=== PATIENT | female | born 1950 | race Caucasian/White ===

== ENCOUNTER 2021-01-09 14:19 | Emergency (ER) | payer MEDICARE, MEDICAID ==
[2021-01-09] MEDS ORDERED: Diltiazem 25 MG/5 ML SDV IVPUSH ONE (14:45)
--- NOTE | 2021-01-09 14:56 | EDM.PDOC ---
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 She said she was too weak to get up yesterday, could not feed herself and today called the ambulance because she was just worn out. Ambulance arrived and found her to be in atrial fibrillation with RVR, very diaphoretic and weak but not febrile. O2 sats were normal. Her main complaint is weakness Onset: Gradual Duration: Hour(s): (Symptoms for the last 2 days) Location: Reports: Generalized Associated Symptoms: Reports: Diaphoresis, Loss of Appetite, Malaise, Weakness. Denies: Chest Pain, Nausea/Vomiting, Shortness of Breath Lower Back Pain Score (Numeric/FACES): 8 - Related Data Allergies Allergy/AdvReac Type Severity Reaction Status Date / Time Sulfa (Sulfonamide Allergy Hives Verified 01/09/21 14:33 Antibiotics) fentanyl AdvReac Hallucinati Verified 01/09/21 14:33 ons morphine AdvReac Nausea and Verified 01/09/21 14:33 Vomiting Home Meds: Home Meds DULoxetine [Cymbalta] 60 mg PO BID 06/10/13 [History] Gabapentin 1,200 mg PO TID 06/10/13 [History] metFORMIN [metFORMIN XR] 500 mg PO BIDM 06/10/13 [History] Metoprolol Tartrate 50 mg PO BID 09/01/14 [History] tiZANidine [Zanaflex] 4 mg PO Q8HR PRN 12/23/14 [History] Cholecalciferol (Vitamin D3) [Vitamin D3] 125 mcg PO DAILY 04/23/19 [History] Fluticasone Propionate [Flovent] 2 spray ABHISHEK DAILY 04/23/19 [History] Magnesium Oxide [Magnesium Oxide 400] 400 mg PO BEDTIME 04/23/19 [History] Varenicline [Chantix] 1 mg PO DAILY 04/23/19 [History] atorvaSTATin Calcium [Atorvastatin Calcium] 10 mg PO BEDTIME 04/23/19 [History] hydrOXYzine HCL [Hydroxyzine HCl] 25 mg PO TID PRN 04/23/19 [History] Hydrocortisone [Hydrocortisone 1% Crm] 1 applic TOP BID 08/25/20 [History] Insuln Asp Prot/Insulin Aspart [NovoLOG Mix 70-30] 19 units SUBCUT BID 08/25/20 [History] Rivaroxaban [Xarelto] 20 mg PO DAILY 08/25/20 [History] glipiZIDE [Glucotrol XL] 2.5 mg PO DAILY 08/25/20 [History] oxyCODONE HCl [Oxycodone HCl] 20 mg PO Q4H PRN 08/25/20 [History] Past Medical History HEENT History: Reports: Cataract, Hard of Hearing, Impaired Vision Cardiovascular History: Reports: Arrhythmia, Blood Clots/VTE/DVT, Pacemaker Respiratory History: Reports: Bronchitis, Recurrent Genitourinary History: Reports: Urinary Incontinence [employer] History: Reports: Musculoskeletal History: Reports: Arthritis, Back Pain, Chronic Psychiatric History: Reports: Depression Endocrine/Metabolic History: Reports: Diabetes, Type I Dermatologic History: Reports: Other (See Below) Other Dermatologic History: rash - Infectious Disease History Infectious Disease History: Reports: Chicken Pox, Measles - Past Surgical History Cardiovascular Surgical History: Reports: Pacer GI Surgical History: Reports: Appendectomy, Hernia, Inguinal Other GI Surgeries/Procedures: bowel removed with endometreosis Female Surgical History: Reports: Section, Hysterectomy Neurological Surgical History: Reports: Laminectomy, Spinal Fusion Social & Family History - Family History Family Medical History: No Pertinent Family History - Tobacco Use Tobacco Use Status *Q: Heavy Tobacco User Years of Tobacco use: 10 Packs/Tins Daily: 0.5 - Caffeine Use Caffeine Use: Reports: None - Recreational Drug Use Recreational Drug Use: No ED ROS GENERAL - Review of Systems Review Of Systems: See Below Constitutional: Reports: Chills, Malaise HEENT: Denies: Throat Pain Respiratory: Denies: Shortness of Breath Cardiovascular: Denies: Chest Pain, Palpitations Endocrine: Reports: Fatigue GI/Abdominal: Reports: Nausea. Denies: Abdominal Pain : Reports: No Symptoms Musculoskeletal: Reports: Back Pain (Chronic back pain) Skin: Reports: Other (Purulent drainage from a pilonidal cyst) Neurological: Reports: Dizziness, Weakness. Denies: Headache Psychiatric: Reports: Depression ED EXAM, GENERAL - Physical Exam Exam: See Below Exam Limited By: No Limitations General Appearance: Alert, No Apparent Distress, Other (Initially very diaphoretic, weak) Eye Exam: Bilateral Eye: Normal Inspection (No jaundice) Head: Atraumatic Respiratory/Chest: No Respiratory Distress, Lungs Clear Cardiovascular: Tachycardia, Irregularly Irregular GI/Abdominal: Soft, Non-Tender Back Exam: Other (Patient has an open wound above the sacrum draining purulent material which is chronic) Extremities: Normal Inspection. No: Pedal Edema Neurological: Alert, Oriented, No Motor/Sensory Deficits Psychiatric: Flat Affect Skin Exam: Warm, Dry Course - Re-Assessments/Exams Free Text/Narrative Re-Assessment/Exam: 01/09/21 15:45 An IV was started, patient was bolused with 1 L of saline and given 20 mg of IV Cardizem. This did control her RVR rate temporarily she did not convert to a sinus rhythm nor did it slow her RVR down for more than 20 minutes. CBC, CMP and troponin were obtained. CBC was normal, CMP relatively normal 01/09/21 16:55 Troponin was negative, coronavirus negative. Continued to begin atrial fibrillation with RVR. Consultation with Jermaine Silva, our hospitalist, and he agreed to assist with elective cardioversion. Under propofol anesthesia for a total time of 18 minutes, 1 synchronized cardioversion was attempted at 200 J. This did convert the patient into a paced rhythm with a pulse of 62 for about 2 minutes, then she went back into atrial fibrillation. Patient did display some hypotension immediately after the procedure but recovered fairly quickly. 01/09/21 18:15 Patient wanted to avoid transfer to another hospital and asked to attempt to control her rate and see if she will convert on her own. She was given 50 mg of oral metoprolol as well as 20 mg of oral oxycodone, her regular pain control medication. Care was turned over to Dr. Fitzgerald pending effective oral medications. Departure - Departure Disposition: Home, Self-Care 01 Clinical Impression: Atrial fibrillation with rapid ventricular response, Pilonidal sinus Chronic pain Qualifiers: Chronic pain type: other chronic pain Qualified Code(s): G89.29 - Other chronic pain Referrals: PCP,Unknown [Primary Care Provider] - Forms: ED Department Discharge Sepsis Event Note (ED) - Evaluation Sepsis Screening Result: No Definite Risk <Aniceto Ramsey - Last Filed: 01/09/21 20:52> Course - Vital Signs Last Recorded V/S: Last Vital Signs Temp 35.8 C L 01/09/21 14:30 Pulse 116 H 01/09/21 18:26 Resp 20 01/09/21 18:26 BP 134/95 H 01/09/21 18:26 Pulse Ox 98 01/09/21 18:26 - Orders/Labs/Meds Labs: Laboratory Tests 01/09/21 01/09/21 01/09/21 Range/Units 14:55 14:55 14:55 WBC 7.4 (4.5-11.0) K/uL RBC 4.81 (3.30-5.50) M/uL Hgb 14.5 (12.0-15.0) g/dL Hct 44.3 (36.0-48.0) % MCV 92 (80-98) fL MCH 30 (27-31) pg MCHC 33 (32-36) % Plt Count 347 (150-400) K/uL Neut % (Auto) 72.7 H (36-66) % Lymph % (Auto) 16.5 L (24-44) % [place] % (Auto) 10.3 H (2-6) % Eos % (Auto) 0.1 L (2-4) % Baso % (Auto) 0.4 (0-1) % Sodium 139 L (140-148) mmol/L Potassium 4.4 (3.6-5.2) mmol/L Chloride 102 (100-108) mmol/L Carbon Dioxide 24 (21-32) mmol/L Anion Gap 17.4 H (5.0-14.0) mmol/L BUN 8 (7-18) mg/dL Creatinine 0.8 (0.6-1.0) mg/dL Est Cr Clr Drug Dosing 54.90 mL/min Estimated GFR (MDRD) > 60 (>60) Glucose 296 H (74-106) mg/dL Lactic Acid (0.4-2.0) mmol/L Calcium 8.9 (8.5-10.1) mg/dL Total Bilirubin 0.4 (0.2-1.0) mg/dL AST 11 L (15-37) U/L ALT 17 (12-78) U/L Alkaline Phosphatase 94 (46-116) U/L Troponin I < 0.017 (0.000-0.056) ng/mL Total Protein 7.2 (6.4-8.2) g/dL Albumin 3.1 L (3.4-5.0) g/dL Globulin 4.1 H (2.3-3.5) g/dL Albumin/Globulin Ratio 0.8 L (1.2-2.2) SARS-CoV-2 RNA (ADAM) (NEGATIVE) 01/09/21 01/09/21 Range/Units 14:58 19:41 WBC (4.5-11.0) K/uL RBC (3.30-5.50) M/uL Hgb (12.0-15.0) g/dL Hct (36.0-48.0) % MCV (80-98) fL MCH (27-31) pg MCHC (32-36) % Plt Count (150-400) K/uL Neut % (Auto) (36-66) % Lymph % (Auto) (24-44) % [place] % (Auto) (2-6) % Eos % (Auto) (2-4) % Baso % (Auto) (0-1) % Sodium (140-148) mmol/L Potassium (3.6-5.2) mmol/L Chloride (100-108) mmol/L Carbon Dioxide (21-32) mmol/L Anion Gap (5.0-14.0) mmol/L BUN (7-18) mg/dL Creatinine (0.6-1.0) mg/dL Est Cr Clr Drug Dosing mL/min Estimated GFR (MDRD) (>60) Glucose (74-106) mg/dL Lactic Acid 0.9 (0.4-2.0) mmol/L Calcium (8.5-10.1) mg/dL Total Bilirubin (0.2-1.0) mg/dL AST (15-37) U/L ALT (12-78) U/L Alkaline Phosphatase (46-116) U/L Troponin I (0.000-0.056) ng/mL Total Protein (6.4-8.2) g/dL Albumin (3.4-5.0) g/dL Globulin (2.3-3.5) g/dL Albumin/Globulin Ratio (1.2-2.2) SARS-CoV-2 RNA (ADAM) Negative (NEGATIVE) Meds: Medications Discontinued Medications Generic Name Dose Route Start Last Admin Trade Name Freq PRN Reason Stop Dose Admin Diltiazem HCl 20 mg 01/09/21 14:45 01/09/21 14:49 Diltiazem 25 Mg/5 Ml Sdv IVPUSH 01/09/21 14:46 20 mg ONETIME ONE Administration Hydromorphone HCl 0.5 mg 01/09/21 15:49 01/09/21 15:56 Hydromorphone 0.5 Mg/0.5 Ml Syringe IVPUSH 01/09/21 15:50 0.5 mg ONETIME ONE Administration Hydromorphone HCl 0.5 mg 01/09/21 18:29 01/09/21 18:34 Hydromorphone 0.5 Mg/0.5 Ml Syringe IVPUSH 01/09/21 18:30 0.5 mg ONETIME ONE Administration Sodium Chloride 1,000 mls @ 999 mls/hr 01/09/21 14:57 01/09/21 15:24 Normal Saline IV 01/09/21 15:57 999 mls/hr ONETIME ONE Administration Metoprolol Tartrate 5 mg/ 55 mls @ 100 mls/hr 01/09/21 16:43 01/09/21 18:37 Sodium Chloride IV 01/09/21 17:15 Not Given ONETIME ONE Metoprolol Tartrate 50 mg 01/09/21 17:22 01/09/21 17:51 Metoprolol Tartrate 50 Mg Tab PO 01/09/21 17:23 50 mg ONETIME ONE Administration Oxycodone HCl 20 mg 01/09/21 17:47 01/09/21 17:51 Oxycodone 5 Mg Tab PO 01/09/21 17:48 20 mg ONETIME ONE Administration Propofol 200 mg 01/09/21 16:11 01/09/21 16:56 Propofol 200 Mg/20 Ml Sdv IVPUSH 01/09/21 16:12 100 mg ONETIME ONE Administration - Re-Assessments/Exams Free Text/Narrative Re-Assessment/Exam: 01/09/21 20:25 the patient has responded well to the metoprolol and is still in atrial fibrillation but is now at a rate of 62 bpm. She still a little diaphoretic but feels much better. Her pain is down to a 5 out of 10 which is where she normally would reside. She is interested in going back home at this time. I did check a venous lactate just to make sure that she was not septic but this is 0.9. Indications to return to the ED were discussed. Departure - Departure Time of Disposition: 20:51 Sepsis Event Note (ED) - Focused Exam Vital Signs: Vital Signs Temp Pulse Pulse Resp BP BP Pulse Ox 01/09/21 18:26 116 H 20 134/95 H 98 01/09/21 17:51 120 H 146/87 H 01/09/21 17:41 115 H 14 141/79 H 100 01/09/21 16:29 124 H 18 121/85 99 01/09/21 14:53 101 H 16 126/69 98 01/09/21 14:46 143 H 17 115/65 99 01/09/21 14:30 35.8 C L 131 H 18 131/75 98 01/09/21 14:26 35.8 C L 131 H 18 131/75 98
[2021-01-09] MEDS ORDERED: Sodium Chloride 0.9% 1,000 ML IV ONE (14:57)
[2021-01-09] MEDS ORDERED: HYDROmorphone 0.5 MG/0.5 ML Syringe IVPUSH ONE ×2 (15:49→18:29)
[2021-01-09] MEDS ORDERED: Propofol 200 MG/20 ML SDV IVPUSH ONE (16:11)
[2021-01-09] MEDS ORDERED: Metoprolol Tartrate 5 MG in Sodium Chloride 0.9% 50 ML IV ONE (16:43)
--- NOTE | 2021-01-09 16:46 | PCM.PRNOTE ---
- Free Text/Narrative Note: Date of service: 01/09/2021 Proposed procedure: Synchronized cardioversion Preprocedure diagnosis: Paroxysmal atrial fibrillation with rapid ventricular response Post procedure diagnosis: Paroxysmal atrial fibrillation with rapid ventricular response Indication for procedure: Yue was evaluated today for management atrial fibrillation with symptoms and rapid ventricular response. Synchronized cardioversion was recommended as a primary treatment. Description of the procedure: Yue is currently located by 10 in the emergency room. We have reviewed the potential risks of electrical cardioversion including but not limited to: Superficial skin herring, ineffective treatment, other arrhythmias, reaction to anesthesia medications or potentially asystole. The benefits of the procedure have also been reviewed. At this time the patient wishes to proceed with electrical cardioversion. All necessary pre-procedure information and paperwork has been provided and completed, respectively. The patient was connected to cardioversion pads and monitoring equipment per protocol. Prior to the procedure, a timeout was held with nursing and anesthesia present to confirm the right patient and right procedure. Once appropriate anesthesia was applied the machine was charged to 150 Joules and a synchronized electrical shock was applied. The patient was successfully converted to normal sinus rhythm/paced rhythm based on telemetry monitoring. The patient then quickly returned to atrial fibrillation with a rapid ventricular response. We elected not to provide another shock because of how quickly she returned to rapid atrial fibrillation. The patient will remain in their current location until anesthesia has dissipated and the patient is more awake and alert. Anticoagulation should be continued for at least one month post cardioversion. There were no immediate complications noted from the procedure. Disposition is pending at the time of this dictation. Cr Silva M.D.
[2021-01-09] MEDS ORDERED: Metoprolol Tartrate 50 MG Tab PO ONE (17:22)
[2021-01-09] MEDS ORDERED: oxyCODONE 5 MG Tab PO ONE (17:47)
[2021-01-09 18:27] VITALS: BP 134/95; PULSE 116
== END 2021-01-09 21:17 | disposition home or self-care (01) ==
LOC: JP.ED 14:19
DX: I48.91 Unspecified atrial fibrillation (principal); L05.01 Pilonidal cyst with abscess; J34.89 Other specified disorders of nose and nasal sinuses; E10.9 Type 1 diabetes mellitus without complications; Z95.0 Presence of cardiac pacemaker; Z72.0 Tobacco use; Z88.5 Allergy status to narcotic agent; Z88.8 Allergy status to other drugs, medicaments and biological substances; Z88.2 Allergy status to sulfonamides; Z20.822 Contact with and (suspected) exposure to COVID-19
CPT/HCPCS: 36415; 80053; 83605; 84484; 85025; 92960; 96374; 96375; 96376; 99285; A9270; J1170; J2704; J3490; J7030; U0002

== ENCOUNTER 2021-09-28 14:07 | Emergency (ER) | payer MEDICARE, MEDICAID ==
[2021-09-28 15:41] VITALS: BP 156/71; PULSE 91
== END 2021-09-28 15:42 | disposition home or self-care (01) ==
LOC: JP.ED 14:07
DX: L05.92 Pilonidal sinus without abscess (principal); G89.29 Other chronic pain; M54.50 Low back pain, unspecified; E10.9 Type 1 diabetes mellitus without complications; Z88.2 Allergy status to sulfonamides; Z88.4 Allergy status to anesthetic agent; Z88.5 Allergy status to narcotic agent; F17.210 Nicotine dependence, cigarettes, uncomplicated; Z79.899 Other long term (current) drug therapy
CPT/HCPCS: 87070; 87077; 87205; 99281; 99283

== ENCOUNTER 2022-03-26 13:01 | Emergency (ER) | payer MEDICARE, MEDICAID ==
[2022-03-26 13:40] VITALS: BP 156/56; PULSE 60
== END 2022-03-26 14:53 | disposition home or self-care (01) ==
LOC: JP.ED 13:01
DX: R00.2 Palpitations (principal); I48.91 Unspecified atrial fibrillation; E11.9 Type 2 diabetes mellitus without complications; E78.00 Pure hypercholesterolemia, unspecified; I10 Essential (primary) hypertension; F17.210 Nicotine dependence, cigarettes, uncomplicated; Z95.0 Presence of cardiac pacemaker; Z88.2 Allergy status to sulfonamides; Z88.5 Allergy status to narcotic agent; Z79.4 Long term (current) use of insulin; Z79.899 Other long term (current) drug therapy
CPT/HCPCS: 36415; 80048; 84484; 85025; 99285

== ENCOUNTER 2022-04-13 07:23 | Emergency (ER) | payer MEDICAID, MEDICARE ==
[2022-04-13 07:27] VITALS: PULSE 104
[2022-04-13] MEDS ORDERED: Ondansetron 4 MG/2 ML SDV IVPUSH ONE (07:28)
[2022-04-13] MEDS ORDERED: Sodium Chloride 0.9% 10 ML Syringe FLUSH PRN (07:28)
[2022-04-13] MEDS ORDERED: Sodium Chloride 0.9% 500 ML IV ONE ×2 (07:28→09:25)
[2022-04-13 08:14] LABS: ESTIMATED GFR 79 mL/min (>60)
[2022-04-13] MEDS ORDERED: oxyCODONE 5 MG Tab PO ONE (08:44)
[2022-04-13] MEDS ORDERED: Prochlorperazine 10 MG/2 ML SDV IVPUSH ONE (09:21)
[2022-04-13] MEDS ORDERED: 50% Dextrose in Water 50 ML Syringe IVPUSH PRN ×2 (09:28→11:22)
[2022-04-13] MEDS ORDERED: Glucagon,Human Recombinant 1 MG Vial IM PRN ×2 (09:28→11:22)
[2022-04-13] MEDS ORDERED: Insulin Lispro 100 Units/ML 3 ML Vial SUBCUT ONE ×2 (09:45→11:22)
[2022-04-13 11:47] VITALS: BP 156/67
== END 2022-04-13 12:11 | disposition home or self-care (01) ==
LOC: JP.ED 07:23
DX: M46.26 Osteomyelitis of vertebra, lumbar region (principal); E11.65 Type 2 diabetes mellitus with hyperglycemia; E11.10 Type 2 diabetes mellitus with ketoacidosis without coma; I48.91 Unspecified atrial fibrillation; E78.00 Pure hypercholesterolemia, unspecified; I10 Essential (primary) hypertension; E11.9 Type 2 diabetes mellitus without complications; Z88.2 Allergy status to sulfonamides; Z88.5 Allergy status to narcotic agent; Z88.8 Allergy status to other drugs, medicaments and biological substances; Z79.01 Long term (current) use of anticoagulants; Z79.899 Other long term (current) drug therapy; Z79.82 Long term (current) use of aspirin; Z79.4 Long term (current) use of insulin
CPT/HCPCS: 36415; 74019; 80053; 80162; 82009; 82550; 82803; 82947; 83605; 83690; 85025; 85651; 86140; 93005; 96374; 96375; 99285; A9270; J0780; J1815; J2405; J3490; J7040; 93010; 99284

== ENCOUNTER 2022-09-02 02:31 | Emergency (ER) | payer MEDICARE, MEDICAID ==
[2022-09-02] MEDS ORDERED: Ondansetron 4 MG/2 ML SDV IVPUSH ONE (02:37)
[2022-09-02 02:46] LABS: BASE EXCESS VENOUS -1.9 mm/L; BICARBONATE,VENOUS 20.8 mmol/L; CARBOXYHEMOGLOBIN 2.5 % (0.0-1.6); METHEMOGLOBIN 0.6 %; O2 SATURATION VENOUS 85.4; OXYHEMOGLOBIN 82.8 %; PCO2 VENOUS 31.4 mm/Hg; PH,VENOUS 7.437 (7.350-7.450); PO2 VENOUS 50.4 mm/Hg; TOTAL HEMOGLOBIN 14.3 g/dL (12.0-16.0)
[2022-09-02 02:48] LABS: HEMATOCRIT 39.9 % (34.3-46.0); HEMOGLOBIN 13.6 g/dL (11.2-15.5); MEAN CORPUSCULAR HEMOGLOBIN 30.7 pg (31.6-35.5); MEAN CORPUSCULAR HGB CONC 34.1 g/dL (31.6-35.5); MEAN CORPUSCULAR VOLUME 90.1 fL (81.4-99.0); PLATELET COUNT,PLT 258 K/uL (130-375); RED BLOOD CELL COUNT 4.43 M/uL (3.77-5.24); WHITE BLOOD CELL COUNT,WBC 8.5 K/uL (3.2-11.0)
[2022-09-02] MEDS ORDERED: Sodium Chloride 0.9% 1,000 ML IV SCH (03:00)
[2022-09-02 03:11] LABS: A/G RATIO 0.6 (1.2-2.2); ALANINE AMINOTRANSFERASE,ALT 14 U/L (12-78); ALBUMIN 2.7 g/dL (3.4-5.0); ALKALINE PHOSPHATASE 112 U/L (46-116); ASPARTATE AMNIOTRANSFERASE,AST 14 U/L (15-37); BAND ABSOLUTE MAN 0.68 K/uL; BAND PERCENT MAN 8 % (5-11); BILIRUBIN TOTAL 0.9 mg/dL (0.2-1.0); BLOOD UREA NITROGEN,BUN 8 mg/dL (7-18); CALCIUM 8.8 mg/dL (8.5-10.1); CARBON DIOXIDE,CO2 23 mmol/L (21-32); CHLORIDE,CL 98 mmol/L (100-108); CREATININE 0.7 mg/dL (0.6-1.0); EST CRCL DRUG DOSING (CG) 60.98 mL/min; ESTIMATED GFR 92 mL/min (>60); GLUCOSE RANDOM 274 mg/dL (74-106); LYMPHOCYTES ABSOLUTE MAN 0.85 K/uL (0.8-3.3); LYMPHOCYTES PERCENT MAN 10 % (24-44); MONOCYTES PERCENT MAN 7 % (2-6); NEUTROPHILS ABSOLUTE MAN 6.38 K/uL (1.0-7.6); POTASSIUM,K 3.6 mmol/L (3.6-5.2); PROTEIN TOTAL,TP 7.4 g/dL (6.4-8.2); SEG NEUTROPHILS PERCENT MAN 75 % (36-66); SODIUM,NA 134 mmol/L (140-148)
[2022-09-02 03:12] LABS: ANION GAP 16.6 mmol/L (5.0-14.0)
[2022-09-02 03:18] LABS: LACTIC ACID 2.4 mmol/L (0.4-2.0)
[2022-09-02 03:23] VITALS: BP 155/67; PULSE 105
[2022-09-02 03:44] LABS: APPEARANCE,URINE CLEAR (CLEAR); BILIRUBIN,URINE SMALL (NEGATIVE); COLOR,URINE YELLOW (YELLOW); GLUCOSE,URINE 500 mg/dL (NEGATIVE); KETONES,URINE 80 mg/dL (NEGATIVE); LEUKOCYTE ESTERASE,URINE NEGATIVE (NEGATIVE); NITRITE,URINE NEGATIVE (NEGATIVE); OCCULT BLOOD,URINE TRACE-INTACT (NEGATIVE); PH,URINE 5.5 (5.0-8.0); PROTEIN,URINE 100 mg/dL (NEGATIVE)
[2022-09-02 03:50] LABS: AMORPHOUS SEDIMENT,URINE MODERATE; BACTERIA,URINE FEW; EPITHELIAL CELLS,URINE RARE; MUCUS,URINE NOT SEEN; RBC,URINE 0-5 (0-5); WBC,URINE 0-5 (0-5)
[2022-09-02] MEDS ORDERED: Metoclopramide 10 MG/2 ML SDV IVPUSH ONE (04:00)
== END 2022-09-02 07:00 | disposition home or self-care (01) ==
LOC: JP.ED 02:31
DX: J20.9 Acute bronchitis, unspecified (principal); J44.0 Chronic obstructive pulmonary disease with (acute) lower respiratory infection; L98.492 Non-pressure chronic ulcer of skin of other sites with fat layer exposed; A08.4 Viral intestinal infection, unspecified; M86.8X8 Other osteomyelitis, other site; I48.91 Unspecified atrial fibrillation; I10 Essential (primary) hypertension; E78.00 Pure hypercholesterolemia, unspecified; E11.9 Type 2 diabetes mellitus without complications; Z88.5 Allergy status to narcotic agent; Z88.2 Allergy status to sulfonamides; Z88.6 Allergy status to analgesic agent; Z79.01 Long term (current) use of anticoagulants; Z79.4 Long term (current) use of insulin; Z79.899 Other long term (current) drug therapy; Z20.822 Contact with and (suspected) exposure to COVID-19
CPT/HCPCS: 36415; 71046; 80053; 80162; 81001; 82803; 83605; 85025; 86140; 93005; 93010; 96361; 96374; 96375; 99283; 99285; J2405; J2765; J7030; U0002

== ENCOUNTER 2023-05-05 03:27 | Inpatient (IN) | payer MEDICARE ==
[2023-05-05] MEDS: LORazepam 2 MG/ML SDV IVPUSH ONE (03:53)
[2023-05-05] MEDS: Ondansetron 4 MG/2 ML SDV IVPUSH ONE (03:53)
[2023-05-05 03:55] LABS: BASOPHILS ABSOLUTE AUTO 0.04 K/uL (0.00-0.10); BASOPHILS PERCENT AUTO 0.3 % (0.1-1.3); EOSINOPHILS PERCENT AUTO 0.2 % (0.0-5.4); HEMATOCRIT 46.1 % (34.3-46.0); HEMOGLOBIN 15.6 g/dL (11.2-15.5); IMMATURE GRAN ABSOLUTE AUTO 0.03 K/uL (0.00-0.23); IMMATURE GRAN PERCENT AUTO 0.2 % (0.0-0.7); LYMPHOCYTES ABSOLUTE AUTO 2.84 K/uL (0.8-3.3); LYMPHOCYTES PERCENT AUTO 23.4 % (11.4-47.7); MEAN CORPUSCULAR HEMOGLOBIN 28.7 pg (31.6-35.5); MEAN CORPUSCULAR HGB CONC 33.8 g/dL (31.6-35.5); MEAN CORPUSCULAR VOLUME 84.7 fL (81.4-99.0); MONOCYTES ABSOLUTE AUTO 0.94 K/uL (0.20-0.90); MONOCYTES PERCENT AUTO 7.7 % (3.3-12.6); NEUTROPHILS ABSOLUTE AUTO 8.26 K/uL (1.0-7.6); NEUTROPHILS PERCENT AUTO 68.2 % (40.0-78.1); PLATELET COUNT,PLT 322 K/uL (130-375); RED BLOOD CELL COUNT 5.44 M/uL (3.77-5.24); WHITE BLOOD CELL COUNT,WBC 12.1 K/uL (3.2-11.0)
[2023-05-05 03:57] LABS: EOSINOPHILS ABSOLUTE AUTO 0.02 K/uL (0.00-0.40)
[2023-05-05] MEDS: Sodium Chloride 0.9% 1,000 ML IV ONE ×3 (03:58→08:52)
[2023-05-05 04:16] LABS: A/G RATIO 0.7 (1.2-2.2); ALANINE AMINOTRANSFERASE,ALT 24 U/L (12-78); ALBUMIN 3.4 g/dL (3.4-5.0); ALKALINE PHOSPHATASE 114 U/L (46-116); ASPARTATE AMNIOTRANSFERASE,AST 24 U/L (15-37); BILIRUBIN TOTAL 0.6 mg/dL (0.2-1.0); BLOOD UREA NITROGEN,BUN 15 mg/dL (7-18); CALCIUM 8.7 mg/dL (8.5-10.1); CARBON DIOXIDE,CO2 23 mmol/L (21-32); CHLORIDE,CL 96 mmol/L (100-108); CREATININE 0.9 mg/dL (0.6-1.0); EST CRCL DRUG DOSING (CG) 47.43 mL/min; ESTIMATED GFR 68 mL/min (>60); GLUCOSE RANDOM 232 mg/dL (74-106); POTASSIUM,K 3.4 mmol/L (3.6-5.2); PROTEIN TOTAL,TP 8.1 g/dL (6.4-8.2); SODIUM,NA 134 mmol/L (140-148)
[2023-05-05 04:18] LABS: ANION GAP 18.4 mmol/L (5.0-14.0)
[2023-05-05 04:52] LABS: CORONAVIRUS COVID-19 NAA NEGATIVE (NEGATIVE); INFLUENZA A NAA NEGATIVE (NEGATIVE); INFLUENZA B NAA NEGATIVE (NEGATIVE); RESPIRATORY SYNCYTIAL VIR NAA NEGATIVE (NEGATIVE)
[2023-05-05] MEDS: HYDROmorphone 1 MG/ML Syringe IVPUSH ONE (06:06)
[2023-05-05 06:24] LABS: APPEARANCE,URINE SLIGHTLY CLOUDY (CLEAR); BILIRUBIN,URINE NEGATIVE (NEGATIVE); COLOR,URINE YELLOW (YELLOW); GLUCOSE,URINE NEGATIVE (NEGATIVE); KETONES,URINE 15 mg/dL (NEGATIVE); LEUKOCYTE ESTERASE,URINE NEGATIVE (NEGATIVE); NITRITE,URINE NEGATIVE (NEGATIVE); OCCULT BLOOD,URINE TRACE-INTACT (NEGATIVE); PH,URINE 5.5 (5.0-8.0); PROTEIN,URINE >=300 mg/dL (NEGATIVE); UROBILINOGEN,URINE 0.2 EU/dL (0.2-1.0)
[2023-05-05 06:29] LABS: AMORPHOUS SEDIMENT,URINE NOT SEEN; BACTERIA,URINE FEW; EPITHELIAL CELLS,URINE FEW; MUCUS,URINE MODERATE; RBC,URINE 0-5 (0-5)
[2023-05-05 06:30] LABS: AMPHETAMINES SCREEN, URINE NEGATIVE (NEGATIVE); BARBITURATE SCREEN,URINE NEGATIVE (NEGATIVE); BENZODIAZEPINES SCREEN,URINE NEGATIVE (NEGATIVE); METHADONE SCREEN, URINE NEGATIVE (NEGATIVE); METHAMPHETAMINES SCREEN, URINE NEGATIVE (NEGATIVE); OXYCODONE SCREEN,URINE PRESUMPTIVE POSITIVE (NEGATIVE); PROPOXYPHENE SCREEN,URINE NEGATIVE (NEGATIVE); THC SCREEN,URINE 50 NG/ML NEGATIVE (NEGATIVE)
[2023-05-05] MEDS ORDERED: Vancomycin 1,500 GM in Sodium Chloride 0.9% 250 ML IV ONE (08:25)
[2023-05-05] MEDS: Cefepime 2 GM in Sodium Chloride 0.9% 50 ML IV ONE (08:50)
[2023-05-05] MEDS: oxyCODONE 5 MG Tab PO ONE (08:53)
[2023-05-05] MEDS ORDERED: Sennosides/Docusate Sodium 50-8.6 MG Tab PO PRN (12:07)
[2023-05-05] MEDS ORDERED: LORazepam 2 MG/ML SDV IVPUSH PRN (12:07)
[2023-05-05] MEDS ORDERED: Acetaminophen 325 MG Tab PO PRN (12:07)
[2023-05-05] MEDS ORDERED: Magnesium Hydroxide 400 MG/5 ML Susp 30 ML Cup PO PRN (12:07)
[2023-05-05] MEDS ORDERED: Ondansetron 4 MG/2 ML SDV IV PRN (12:07)
[2023-05-05] MEDS ORDERED: Ondansetron 4 MG Tab.DIS PO PRN (12:07)
[2023-05-05] MEDS ORDERED: OXYCODONE HCL 20 MG PO PRN (12:15)
[2023-05-05] MEDS ORDERED: Non-Formulary Medication 1 Each (Tizanidine [Zanaflex] 4 MG Tablet) PO PRN (12:15)
[2023-05-05] MEDS ORDERED: Gabapentin 300 MG Cap PO SCH (14:00)
[2023-05-05] MEDS ORDERED: tiZANidine 2 MG Tab PO PRN (14:02)
[2023-05-05] MEDS: Digoxin 125 MCG Tab PO SCH (14:10)
[2023-05-05] MEDS: Gabapentin 400 MG Cap PO SCH (14:10)
[2023-05-05] MEDS: oxyCODONE 5 MG Tab PO PRN (14:56)
[2023-05-05] MEDS: Potassium Chloride 20 MEQ Tab.ER PO SCH (16:42)
[2023-05-05] MEDS: metFORMIN 500 MG Tab PO SCH (16:43)
[2023-05-05] MEDS: Insulin Lispro 100 Unit/ML 3 ML KwikPen SUBCUT SCH (16:49)
[2023-05-05] MEDS ORDERED: Glucose Gel 15 GM in 37.5 GM Tube PO PRN (17:17)
[2023-05-05] MEDS ORDERED: 50% Dextrose in Water 50 ML Syringe IVPUSH PRN (17:17)
[2023-05-05] MEDS ORDERED: Glucagon,Human Recombinant 1 MG Vial IM PRN (17:17)
[2023-05-05] MEDS: Metoprolol Tartrate 5 MG/5 ML SDV IVPUSH ONE (17:44)
[2023-05-05] MEDS: Cefepime 2 GM in Sodium Chloride 0.9% 50 ML IV SCH (19:47)
[2023-05-05] MEDS ORDERED: Metoprolol Tartrate 25 MG Tab PO SCH (21:00)
[2023-05-05] MEDS ORDERED: Non-Formulary Medication 1 Each (Insuln Asp Prot/Insulin Aspart [Novolog Mix 70-30] 100 UN SUBCUT SCH (21:00)
[2023-05-05] MEDS: Insulin Lispro Protamine/Lispro 75-25 100 Units/ML 10 ML Vial SUBCUT SCH (21:45)
[2023-05-05] MEDS: DULoxetine 30 MG Cap PO SCH (21:48)
[2023-05-05] MEDS: atorvaSTATin 10 MG Tab PO SCH (21:49)
[2023-05-05] MEDS: buPROPion 150 MG Tab.ER PO SCH (21:50)
[2023-05-05] MEDS: Metoprolol Tartrate 50 MG Tab PO SCH (21:51)
[2023-05-05] MEDS: Sodium Chloride 0.9% 1,000 ML IV SCH (23:55)
[2023-05-06 06:00] LABS: HEMATOCRIT 38.1 % (34.3-46.0); HEMOGLOBIN 12.3 g/dL (11.2-15.5); MEAN CORPUSCULAR HEMOGLOBIN 28.5 pg (31.6-35.5); MEAN CORPUSCULAR HGB CONC 32.3 g/dL (31.6-35.5); MEAN CORPUSCULAR VOLUME 88.2 fL (81.4-99.0); RED BLOOD CELL COUNT 4.32 M/uL (3.77-5.24)
[2023-05-06 06:12] LABS: HEMOGLOBIN A1C 7.9 % (4.5-6.2)
[2023-05-06 06:23] LABS: A/G RATIO 0.7 (1.2-2.2); ALANINE AMINOTRANSFERASE,ALT 17 U/L (12-78); ALBUMIN 2.4 g/dL (3.4-5.0); ALKALINE PHOSPHATASE 80 U/L (46-116); ASPARTATE AMNIOTRANSFERASE,AST 16 U/L (15-37); BILIRUBIN TOTAL 0.5 mg/dL (0.2-1.0); BLOOD UREA NITROGEN,BUN 9 mg/dL (7-18); C-REACTIVE PROTEIN 0.79 mg/dL (<0.50); CALCIUM 7.5 mg/dL (8.5-10.1); CARBON DIOXIDE,CO2 25 mmol/L (21-32); CHLORIDE,CL 107 mmol/L (100-108); CREATININE 0.7 mg/dL (0.6-1.0); EST CRCL DRUG DOSING (CG) 60.98 mL/min; ESTIMATED GFR 92 mL/min (>60); GLUCOSE RANDOM 73 mg/dL (74-106); POTASSIUM,K 3.2 mmol/L (3.6-5.2); SODIUM,NA 140 mmol/L (140-148)
[2023-05-06 06:28] LABS: ANION GAP 11.2 mmol/L (5.0-14.0)
[2023-05-06] MEDS: Pantoprazole 40 MG Tab.CR PO SCH (08:05)
[2023-05-06] MEDS: glipiZIDE 5 MG Tab PO SCH (08:05)
[2023-05-06] MEDS: Polyethylene Glycol 3350 Powder 17 GM Packet PO SCH (08:06)
[2023-05-06] MEDS ORDERED: Non-Formulary Medication 1 Each (Rivaroxaban [Xarelto] 20 MG Tablet) PO SCH (09:00)
[2023-05-06] MEDS ORDERED: glipiZIDE 5 MG Tab.ER PO SCH (09:00)
[2023-05-06] MEDS: SODIUM HYPOCHLORITE TOP SCH (10:22)
[2023-05-06] MEDS: Rivaroxaban 10 MG Tab PO SCH (10:29)
[2023-05-06] MEDS ORDERED: SODIUM HYPOCHLORITE TOP SCH (15:00)
[2023-05-07 05:13] LABS: HEMATOCRIT 38.3 % (34.3-46.0); HEMOGLOBIN 12.6 g/dL (11.2-15.5); MEAN CORPUSCULAR HGB CONC 32.9 g/dL (31.6-35.5); RED BLOOD CELL COUNT 4.35 M/uL (3.77-5.24); WHITE BLOOD CELL COUNT,WBC 6.4 K/uL (3.2-11.0)
[2023-05-07 05:30] LABS: A/G RATIO 0.7 (1.2-2.2); ALANINE AMINOTRANSFERASE,ALT 20 U/L (12-78); ALBUMIN 2.5 g/dL (3.4-5.0); ALKALINE PHOSPHATASE 82 U/L (46-116); ASPARTATE AMNIOTRANSFERASE,AST 16 U/L (15-37); BILIRUBIN TOTAL 0.4 mg/dL (0.2-1.0); BLOOD UREA NITROGEN,BUN 11 mg/dL (7-18); CALCIUM 7.9 mg/dL (8.5-10.1); CARBON DIOXIDE,CO2 26 mmol/L (21-32); CHLORIDE,CL 107 mmol/L (100-108); CREATININE 0.7 mg/dL (0.6-1.0); EST CRCL DRUG DOSING (CG) 60.98 mL/min; ESTIMATED GFR 92 mL/min (>60); GLUCOSE RANDOM 50 mg/dL (74-106); POTASSIUM,K 3.1 mmol/L (3.6-5.2); PROTEIN TOTAL,TP 6.2 g/dL (6.4-8.2); SODIUM,NA 142 mmol/L (140-148)
[2023-05-07 05:44] LABS: ANION GAP 12.1 mmol/L (5.0-14.0)
[2023-05-07] MEDS ORDERED: hydrALAZINE 20 MG/ML SDV IVPUSH PRN (08:19)
[2023-05-07] MEDS: Nystatin Topical Powder 15 GM Bottle TOP PRN (15:00)
[2023-05-08 05:31] LABS: HEMATOCRIT 39.8 % (34.3-46.0); HEMOGLOBIN 13.2 g/dL (11.2-15.5); MEAN CORPUSCULAR HEMOGLOBIN 29.1 pg (31.6-35.5); MEAN CORPUSCULAR HGB CONC 33.2 g/dL (31.6-35.5); MEAN CORPUSCULAR VOLUME 87.9 fL (81.4-99.0); RED BLOOD CELL COUNT 4.53 M/uL (3.77-5.24); WHITE BLOOD CELL COUNT,WBC 7.1 K/uL (3.2-11.0)
[2023-05-08 06:04] LABS: A/G RATIO 0.7 (1.2-2.2); ALANINE AMINOTRANSFERASE,ALT 23 U/L (12-78); ALBUMIN 2.7 g/dL (3.4-5.0); ALKALINE PHOSPHATASE 83 U/L (46-116); ANION GAP 7.8 mmol/L (5.0-14.0); ASPARTATE AMNIOTRANSFERASE,AST 17 U/L (15-37); BILIRUBIN TOTAL 0.4 mg/dL (0.2-1.0); BLOOD UREA NITROGEN,BUN 22 mg/dL (7-18); C-REACTIVE PROTEIN 1.19 mg/dL (<0.50); CALCIUM 8.7 mg/dL (8.5-10.1); CARBON DIOXIDE,CO2 29 mmol/L (21-32); CHLORIDE,CL 103 mmol/L (100-108); CREATININE 0.8 mg/dL (0.6-1.0); EST CRCL DRUG DOSING (CG) 53.35 mL/min; ESTIMATED GFR 79 mL/min (>60); GLUCOSE RANDOM 55 mg/dL (74-106); POTASSIUM,K 3.7 mmol/L (3.6-5.2); PROTEIN TOTAL,TP 6.7 g/dL (6.4-8.2); SODIUM,NA 140 mmol/L (140-148)
[2023-05-08] MEDS: Insulin Lispro Protamine/Lispro 75-25 100 Units/ML 10 ML Vial SUBCUT SCH (10:53)
[2023-05-08 11:31] VITALS: BP 124/46
[2023-05-08 13:37] VITALS: PULSE 71
== END 2023-05-08 15:06 | disposition home health service (06) | DRG 871 ==
LOC: JP.ED 03:27 → JP.MS 08:55
PROVIDERS: ADMIT Hospitalist; ATTEND Internal Medicine
DX: A41.01 Sepsis due to Methicillin susceptible Staphylococcus aureus (principal); J96.01 Acute respiratory failure with hypoxia; N39.0 Urinary tract infection, site not specified; E87.1 Hypo-osmolality and hyponatremia; E11.9 Type 2 diabetes mellitus without complications; Z90.49 Acquired absence of other specified parts of digestive tract; L03.319 Cellulitis of trunk, unspecified; R65.20 Severe sepsis without septic shock; L89.159 Pressure ulcer of sacral region, unspecified stage; H91.90 Unspecified hearing loss, unspecified ear; M54.50 Low back pain, unspecified; Z88.8 Allergy status to other drugs, medicaments and biological substances; E11.40 Type 2 diabetes mellitus with diabetic neuropathy, unspecified; E78.00 Pure hypercholesterolemia, unspecified; I10 Essential (primary) hypertension; E87.6 Hypokalemia; E11.622 Type 2 diabetes mellitus with other skin ulcer; L98.492 Non-pressure chronic ulcer of skin of other sites with fat layer exposed; M19.90 Unspecified osteoarthritis, unspecified site; I48.91 Unspecified atrial fibrillation; F32.A Depression, unspecified; G89.29 Other chronic pain; Z90.710 Acquired absence of both cervix and uterus; Z98.890 Other specified postprocedural states; Z88.2 Allergy status to sulfonamides; Z79.899 Other long term (current) drug therapy; Z79.01 Long term (current) use of anticoagulants; Z79.4 Long term (current) use of insulin; Z98.1 Arthrodesis status; Z79.84 Long term (current) use of oral hypoglycemic drugs; Z88.5 Allergy status to narcotic agent; Z11.52 Encounter for screening for COVID-19; Z95.0 Presence of cardiac pacemaker; Z86.718 Personal history of other venous thrombosis and embolism; Z87.891 Personal history of nicotine dependence
CPT/HCPCS: 0241U; 36415; 71045; 80053; 80162; 80305; 81001; 82947; 83036; 83605; 84145; 85025; 85027; 86140; 87040; 87070; 87075; 87077; 87186; 87205; 96361; 96374; 96375; 97162; 97530; 99222; 99232; 99238; 99285; A9270-GY; J0692; J1170; J1815; J2060; J2405; J3370; J3490; J7030; J7050

== ENCOUNTER 2023-12-19 04:00 | Emergency (ER) | payer MEDICARE, MEDICAID ==
[2023-12-19 04:26] LABS: BASOPHILS ABSOLUTE AUTO 0.04 K/uL (0.00-0.10); BASOPHILS PERCENT AUTO 0.4 % (0.1-1.3); EOSINOPHILS ABSOLUTE AUTO 0.03 K/uL (0.00-0.40); EOSINOPHILS PERCENT AUTO 0.3 % (0.0-5.4); HEMATOCRIT 40.2 % (34.3-46.0); HEMOGLOBIN 14.4 g/dL (11.2-15.5); IMMATURE GRAN PERCENT AUTO 0.2 % (0.0-0.7); LYMPHOCYTES ABSOLUTE AUTO 2.07 K/uL (0.8-3.3); LYMPHOCYTES PERCENT AUTO 21.7 % (11.4-47.7); MEAN CORPUSCULAR HEMOGLOBIN 30.5 pg (31.6-35.5); MEAN CORPUSCULAR HGB CONC 35.8 g/dL (31.6-35.5); MEAN CORPUSCULAR VOLUME 85.2 fL (81.4-99.0); MONOCYTES ABSOLUTE AUTO 0.88 K/uL (0.20-0.90); MONOCYTES PERCENT AUTO 9.2 % (3.3-12.6); NEUTROPHILS ABSOLUTE AUTO 6.48 K/uL (1.0-7.6); NEUTROPHILS PERCENT AUTO 68.2 % (40.0-78.1); PLATELET COUNT,PLT 267 K/uL (130-375); RED BLOOD CELL COUNT 4.72 M/uL (3.77-5.24); WHITE BLOOD CELL COUNT,WBC 9.5 K/uL (3.2-11.0)
[2023-12-19] MEDS: Lactated Ringers 1,000 ML IV SCH (04:30)
[2023-12-19] MEDS: Ondansetron 4 MG/2 ML SDV IVPUSH ONE (04:30)
[2023-12-19 04:33] LABS: IMMATURE GRAN ABSOLUTE AUTO 0.02 K/uL (0.00-0.23)
[2023-12-19] MEDS: HYDROmorphone 1 MG/ML Syringe IVPUSH ONE (04:33)
[2023-12-19] MEDS: Sodium Chloride 0.9% 10 ML Syringe FLUSH PRN (04:36)
[2023-12-19 04:46] LABS: A/G RATIO 0.8 (1.2-2.2); ALANINE AMINOTRANSFERASE,ALT 16 U/L (12-78); ALBUMIN 3.7 g/dL (3.4-5.0); ALKALINE PHOSPHATASE 102 U/L (46-116); ASPARTATE AMNIOTRANSFERASE,AST 16 U/L (15-37); BILIRUBIN TOTAL 0.7 mg/dL (0.2-1.0); BLOOD UREA NITROGEN,BUN 7 mg/dL (7-18); CALCIUM 9.9 mg/dL (8.5-10.1); CARBON DIOXIDE,CO2 22 mmol/L (21-32); CHLORIDE,CL 100 mmol/L (100-108); CREATININE 0.7 mg/dL (0.6-1.0); EST CRCL DRUG DOSING (CG) 57.46 mL/min; ESTIMATED GFR 92 mL/min (>60); GLUCOSE RANDOM 192 mg/dL (74-106); POTASSIUM,K 3.6 mmol/L (3.6-5.2); PROTEIN TOTAL,TP 8.3 g/dL (6.4-8.2); SODIUM,NA 138 mmol/L (140-148); TROPONIN I HIGH SENSITIVITY 13.5 pg/mL (<=60.3)
[2023-12-19 04:48] LABS: ANION GAP 19.6 mmol/L (5.0-14.0)
[2023-12-19] MEDS ORDERED: oxyCODONE 5 MG Tab ONE (07:33)
[2023-12-19] MEDS: Prochlorperazine 10 MG/2 ML SDV IVPUSH ONE (07:40)
[2023-12-19] MEDS: oxyCODONE 5 MG Tab PO ONE (07:41)
[2023-12-19 08:54] VITALS: BP 155/48; PULSE 60
== END 2023-12-19 08:54 | disposition home or self-care (01) ==
LOC: JP.ED 04:00
DX: F11.23 Opioid dependence with withdrawal (principal); I10 Essential (primary) hypertension; E78.00 Pure hypercholesterolemia, unspecified; E11.9 Type 2 diabetes mellitus without complications; Z90.49 Acquired absence of other specified parts of digestive tract; Z90.710 Acquired absence of both cervix and uterus; Z79.899 Other long term (current) drug therapy; Z79.4 Long term (current) use of insulin; Z79.891 Long term (current) use of opiate analgesic; Z88.5 Allergy status to narcotic agent; Z88.2 Allergy status to sulfonamides; Z88.8 Allergy status to other drugs, medicaments and biological substances
CPT/HCPCS: 36415; 80053; 80162; 83605; 83690; 84484; 85025; 96361; 96374; 96375; 99284; A9270; J0780; J1170; J2405; J3490; J7120

== ENCOUNTER 2024-01-03 16:50 | Emergency (ER) | payer MEDICARE, MEDICAID ==
[2024-01-03 17:38] VITALS: BP 114/57; PULSE 89
== END 2024-01-03 18:20 | disposition home or self-care (01) ==
LOC: JP.ED 16:50
DX: R04.0 Epistaxis (principal); I10 Essential (primary) hypertension; E78.00 Pure hypercholesterolemia, unspecified; I48.91 Unspecified atrial fibrillation; E11.9 Type 2 diabetes mellitus without complications; Z95.0 Presence of cardiac pacemaker; Z90.710 Acquired absence of both cervix and uterus; Z79.899 Other long term (current) drug therapy; Z79.84 Long term (current) use of oral hypoglycemic drugs; Z79.4 Long term (current) use of insulin; Z88.5 Allergy status to narcotic agent; Z88.2 Allergy status to sulfonamides; Z88.6 Allergy status to analgesic agent
CPT/HCPCS: 99283

== ENCOUNTER 2024-03-01 08:22 | Inpatient (IN) | payer MEDICARE, MEDICAID ==
[2024-03-01] MEDS: Sodium Chloride 0.9% 1,000 ML IV ONE (08:49)
[2024-03-01] MEDS: Albuterol/Ipratropium 3.0-0.5 MG/3 ML Neb Soln NEB ONE (08:49)
[2024-03-01] MEDS: methylPREDNISolone Sodium Succinate 125 MG/2 ML SDV IVPUSH ONE ×2 (08:49→21:12)
[2024-03-01 08:51] LABS: BASE EXCESS ARTERIAL -3.1 mm/L; BICARBONATE,ARTERIAL 18.4 mmol/L (22.0-26.0); CARBOXYHEMOGLOBIN 1.7 % (0.0-1.6); METHEMOGLOBIN 0.6 %; O2 SATURATION ARTERIAL 96.5 % (95.0-98.0); OXYHEMOGLOBIN 94.3 %; PCO2 ARTERIAL 24.6 mmHg (35.0-42.0); PO2 ARTERIAL 83.3 mmHg (75.0-100.0); TOTAL HEMOGLOBIN 14.3 g/dL (12.0-16.0)
[2024-03-01 08:52] LABS: BASOPHILS ABSOLUTE AUTO 0.04 K/uL (0.00-0.10); BASOPHILS PERCENT AUTO 0.5 % (0.1-1.3); EOSINOPHILS ABSOLUTE AUTO 0.03 K/uL (0.00-0.40); EOSINOPHILS PERCENT AUTO 0.4 % (0.0-5.4); HEMATOCRIT 40.7 % (34.3-46.0); HEMOGLOBIN 13.8 g/dL (11.2-15.5); IMMATURE GRAN PERCENT AUTO 0.2 % (0.0-0.7); LYMPHOCYTES ABSOLUTE AUTO 1.17 K/uL (0.8-3.3); LYMPHOCYTES PERCENT AUTO 14.4 % (11.4-47.7); MEAN CORPUSCULAR HGB CONC 33.9 g/dL (31.6-35.5); MEAN CORPUSCULAR VOLUME 85.5 fL (81.4-99.0); MONOCYTES ABSOLUTE AUTO 1.01 K/uL (0.20-0.90); MONOCYTES PERCENT AUTO 12.4 % (3.3-12.6); NEUTROPHILS ABSOLUTE AUTO 5.86 K/uL (1.0-7.6); NEUTROPHILS PERCENT AUTO 72.1 % (40.0-78.1); PLATELET COUNT,PLT 280 K/uL (130-375); RED BLOOD CELL COUNT 4.76 M/uL (3.77-5.24); WHITE BLOOD CELL COUNT,WBC 8.1 K/uL (3.2-11.0)
[2024-03-01 09:05] LABS: IMMATURE GRAN ABSOLUTE AUTO 0.02 K/uL (0.00-0.23)
[2024-03-01 09:17] LABS: LACTIC ACID 2.1 mmol/L (0.4-2.0)
[2024-03-01] MEDS: Metoprolol Tartrate 50 MG Tab PO ONE (09:30)
[2024-03-01] MEDS: Levalbuterol HCl 1.25 MG/3 ML Neb NEB ONE (09:30)
[2024-03-01 09:31] LABS: A/G RATIO 0.6 (1.2-2.2); ALANINE AMINOTRANSFERASE,ALT 15 U/L (12-78); ALKALINE PHOSPHATASE 106 U/L (46-116); ASPARTATE AMNIOTRANSFERASE,AST 14 U/L (15-37); BILIRUBIN TOTAL 0.9 mg/dL (0.2-1.0); BLOOD UREA NITROGEN,BUN 7 mg/dL (7-18); CALCIUM 9.2 mg/dL (8.5-10.1); CARBON DIOXIDE,CO2 20 mmol/L (21-32); CHLORIDE,CL 97 mmol/L (100-108); CREATININE 0.9 mg/dL (0.6-1.0); EST CRCL DRUG DOSING (CG) 44.69 mL/min; ESTIMATED GFR 68 mL/min (>60); GLUCOSE RANDOM 208 mg/dL (74-106); POTASSIUM,K 3.2 mmol/L (3.6-5.2); PROTEIN TOTAL,TP 7.7 g/dL (6.4-8.2); SODIUM,NA 135 mmol/L (140-148)
[2024-03-01 09:32] LABS: ANION GAP 21.2 mmol/L (5.0-14.0)
[2024-03-01 09:45] LABS: CORONAVIRUS COVID-19 NAA NEGATIVE (NEGATIVE); INFLUENZA A NAA NEGATIVE (NEGATIVE); INFLUENZA B NAA NEGATIVE (NEGATIVE); RESPIRATORY SYNCYTIAL VIR NAA NEGATIVE (NEGATIVE)
[2024-03-01] MEDS: Sodium Chloride 0.9% 60 ML IV SCH (10:01)
[2024-03-01] MEDS: Iopamidol 612 MG/ML 100 ML Bottle IV PRN (10:01)
[2024-03-01] MEDS: Sodium Chloride 0.9% 10 ML Syringe FLUSH ONE (10:01)
[2024-03-01] MEDS: cefTRIAXone 2 GM in Sodium Chloride 0.9% 50 ML IV ONE (10:09)
[2024-03-01] MEDS: Sodium Chloride 0.9% 1,000 ML IV SCH (10:09)
[2024-03-01] MEDS ORDERED: Metoprolol Tartrate 5 MG in Sodium Chloride 0.9% 50 ML IV ONE (10:29)
[2024-03-01] MEDS: Azithromycin 500 MG in Sodium Chloride 0.9% 250 ML IV SCH (10:41)
[2024-03-01] MEDS: Ondansetron 4 MG/2 ML SDV IVPUSH ONE (11:19)
[2024-03-01] MEDS: HYDROmorphone 0.5 MG/0.5 ML Syringe IVPUSH ONE (11:35)
[2024-03-01] MEDS: Metoprolol Tartrate 5 MG/5 ML SDV IV ONE (12:54)
[2024-03-01] MEDS: Morphine 2 MG/ML SYRINGE IVPUSH ONE (12:55)
[2024-03-01] MEDS ORDERED: Albuterol 0.083% 2.5 MG/3 ML Neb Soln NEB PRN (14:38)
[2024-03-01] MEDS ORDERED: Naloxone 0.4 MG/ML SDV IVPUSH PRN (14:38)
[2024-03-01] MEDS ORDERED: guaiFENesin/Dextromethorphan 100-10 MG/5 ML Soln 10 ML Cup PO PRN (14:38)
[2024-03-01] MEDS ORDERED: Magnesium Hydroxide 400 MG/5 ML Susp 30 ML Cup PO PRN (14:38)
[2024-03-01] MEDS ORDERED: Polyethylene Glycol 3350 Powder 17 GM Packet PO PRN (14:38)
[2024-03-01] MEDS ORDERED: Benzonatate 100 MG Cap PO PRN (14:38)
[2024-03-01] MEDS ORDERED: Glucagon,Human Recombinant 1 MG Vial IM PRN (14:38)
[2024-03-01] MEDS ORDERED: Ondansetron 4 MG/2 ML SDV IV PRN (14:38)
[2024-03-01] MEDS ORDERED: 50% Dextrose in Water 50 ML Syringe IVPUSH PRN (14:38)
[2024-03-01] MEDS ORDERED: Ondansetron 4 MG Tab.DIS PO PRN (14:38)
[2024-03-01] MEDS: Albuterol/Ipratropium 3.0-0.5 MG/3 ML Neb Soln NEB SCH (15:27)
[2024-03-01] MEDS: HYDROmorphone 0.5 MG/0.5 ML Syringe IVPUSH PRN (15:38)
[2024-03-01] MEDS: Gabapentin 400 MG Cap PO SCH (15:55)
[2024-03-01] MEDS: Potassium Chloride 20 MEQ Tab.ER PO ONE (15:56)
[2024-03-01] MEDS: Sodium Chloride 0.9% 500 ML IV ONE (16:30)
[2024-03-01] MEDS ORDERED: Diclofenac Sodium 1% Gel 100 GM Tube TOP PRN (16:34)
[2024-03-01] MEDS: Rivaroxaban 10 MG Tab PO SCH (16:56)
[2024-03-01] MEDS: metFORMIN 500 MG Tab PO SCH (16:56)
[2024-03-01] MEDS: Insulin Lispro 100 Unit/ML 3 ML KwikPen SUBCUT SCH (16:57)
[2024-03-01] MEDS: oxyCODONE 5 MG Tab PO PRN (18:12)
[2024-03-01] MEDS: Lactobacillus Rhamnosus GG (Probiotic) Cap PO SCH (21:11)
[2024-03-01] MEDS: atorvaSTATin 10 MG Tab PO SCH (21:12)
[2024-03-01] MEDS: DULoxetine 30 MG Cap PO SCH (21:12)
[2024-03-01] MEDS: Metoprolol Tartrate 50 MG Tab PO SCH (21:12)
[2024-03-01] MEDS: buPROPion 150 MG Tab.ER PO SCH (21:13)
[2024-03-01] MEDS: tiZANidine 2 MG Tab PO PRN (23:43)
[2024-03-02 05:34] LABS: HEMATOCRIT 37.5 % (34.3-46.0); HEMOGLOBIN 12.3 g/dL (11.2-15.5); MEAN CORPUSCULAR HEMOGLOBIN 28.7 pg (31.6-35.5); MEAN CORPUSCULAR HGB CONC 32.8 g/dL (31.6-35.5); MEAN CORPUSCULAR VOLUME 87.6 fL (81.4-99.0); RED BLOOD CELL COUNT 4.28 M/uL (3.77-5.24); WHITE BLOOD CELL COUNT,WBC 6.3 K/uL (3.2-11.0)
[2024-03-02 05:54] LABS: CALCIUM 8.8 mg/dL (8.5-10.1); CREATININE 0.9 mg/dL (0.6-1.0); EST CRCL DRUG DOSING (CG) 44.69 mL/min; POTASSIUM,K 4.8 mmol/L (3.6-5.2)
[2024-03-02 05:56] LABS: ANION GAP 13.8 mmol/L (5.0-14.0)
[2024-03-02] MEDS: Insulin Glargine,Human Rec. Analog 100 Units/ML 3 ML Pen SUBCUT SCH (07:59)
[2024-03-02] MEDS: predniSONE 20 MG Tab PO SCH (08:02)
[2024-03-02] MEDS: Fluticasone NASAL Spray 16 GM Bottle NASBOTH SCH (08:02)
[2024-03-02] MEDS: Azithromycin 250 MG Tab PO SCH (08:03)
[2024-03-02] MEDS: cefTRIAXone 2 GM in Sodium Chloride 0.9% 50 ML IV SCH (09:01)
[2024-03-02] MEDS: Insulin Lispro 100 Unit/ML 3 ML KwikPen SUBCUT SCH ×2 (11:29→17:14)
[2024-03-02] MEDS: Digoxin 125 MCG Tab PO SCH (14:11)
[2024-03-02] MEDS: Acetaminophen 325 MG Tab PO PRN (20:05)
[2024-03-03] MEDS: Sennosides/Docusate Sodium 50-8.6 MG Tab PO PRN (06:00)
[2024-03-04] MEDS: Cefdinir 300 MG Cap PO SCH (08:35)
[2024-03-05 11:59] VITALS: BP 157/83
[2024-03-05 12:09] VITALS: PULSE 70
== END 2024-03-05 14:25 | disposition home or self-care (01) | DRG 191 ==
LOC: JP.ED 08:22 → JP.MS 12:46
PROVIDERS: ADMIT Internal Medicine; ATTEND Hospitalist
PROC: 4A033R1 Measurement of Arterial Saturation, Peripheral, Percutaneous Approach (ICD-10-PCS; principal; 2024-03-01)
DX: J18.9 Pneumonia, unspecified organism (principal); J44.0 Chronic obstructive pulmonary disease with (acute) lower respiratory infection; I48.20 Chronic atrial fibrillation, unspecified; J44.1 Chronic obstructive pulmonary disease with (acute) exacerbation; H54.7 Unspecified visual loss; E11.9 Type 2 diabetes mellitus without complications; H26.9 Unspecified cataract; E78.00 Pure hypercholesterolemia, unspecified; I10 Essential (primary) hypertension; Z88.6 Allergy status to analgesic agent; M19.90 Unspecified osteoarthritis, unspecified site; F32.A Depression, unspecified; L98.492 Non-pressure chronic ulcer of skin of other sites with fat layer exposed; Z90.710 Acquired absence of both cervix and uterus; E11.622 Type 2 diabetes mellitus with other skin ulcer; J20.9 Acute bronchitis, unspecified; G89.29 Other chronic pain; M54.50 Low back pain, unspecified; E11.65 Type 2 diabetes mellitus with hyperglycemia; Z79.01 Long term (current) use of anticoagulants; Z90.49 Acquired absence of other specified parts of digestive tract; Z88.5 Allergy status to narcotic agent; Z88.2 Allergy status to sulfonamides; Z88.8 Allergy status to other drugs, medicaments and biological substances; Z79.84 Long term (current) use of oral hypoglycemic drugs; Z79.1 Long term (current) use of non-steroidal anti-inflammatories (NSAID); Z79.4 Long term (current) use of insulin; Z79.899 Other long term (current) drug therapy; Z79.02 Long term (current) use of antithrombotics/antiplatelets; Z95.0 Presence of cardiac pacemaker; Z98.891 History of uterine scar from previous surgery; Z98.890 Other specified postprocedural states; Z98.1 Arthrodesis status; Z90.89 Acquired absence of other organs; Z87.891 Personal history of nicotine dependence
CPT/HCPCS: 0241U; 36415; 36600; 71045; 71275; 80048; 80053; 82803; 82947; 83605; 84484; 85025; 85027; 85379; 87040; 87070; 87205; 93005; 94640; 94667; 96361; 96365; 96367; 96375; 97161; 99222; 99232; 99238; 99284; 99285; 93010; A9270-GY; J0456; J0696; J1171; J1815; J1815-GY; J2405; J2919; J3490; J7030; J7050; J7512; J7612-GY; J7620; Q9967

== ENCOUNTER 2024-03-13 13:49 | Emergency (ER) | payer MEDICARE, MEDICAID ==
[2024-03-13 14:10] LABS: BASOPHILS ABSOLUTE AUTO 0.03 K/uL (0.00-0.10); BASOPHILS PERCENT AUTO 0.2 % (0.1-1.3); EOSINOPHILS ABSOLUTE AUTO 0.04 K/uL (0.00-0.40); EOSINOPHILS PERCENT AUTO 0.3 % (0.0-5.4); HEMATOCRIT 37.1 % (34.3-46.0); HEMOGLOBIN 12.3 g/dL (11.2-15.5); IMMATURE GRAN ABSOLUTE AUTO 0.08 K/uL (0.00-0.23); IMMATURE GRAN PERCENT AUTO 0.6 % (0.0-0.7); LYMPHOCYTES ABSOLUTE AUTO 1.66 K/uL (0.8-3.3); LYMPHOCYTES PERCENT AUTO 12.8 % (11.4-47.7); MEAN CORPUSCULAR HEMOGLOBIN 29.3 pg (31.6-35.5); MEAN CORPUSCULAR HGB CONC 33.2 g/dL (31.6-35.5); MEAN CORPUSCULAR VOLUME 88.3 fL (81.4-99.0); MONOCYTES ABSOLUTE AUTO 0.95 K/uL (0.20-0.90); MONOCYTES PERCENT AUTO 7.3 % (3.3-12.6); NEUTROPHILS ABSOLUTE AUTO 10.17 K/uL (1.0-7.6); NEUTROPHILS PERCENT AUTO 78.8 % (40.0-78.1); PLATELET COUNT,PLT 273 K/uL (130-375); WHITE BLOOD CELL COUNT,WBC 12.9 K/uL (3.2-11.0)
[2024-03-13 14:25] LABS: ANION GAP 9.3 mmol/L (5.0-14.0); BLOOD UREA NITROGEN,BUN 13 mg/dL (7-18); CALCIUM 9.2 mg/dL (8.5-10.1); CARBON DIOXIDE,CO2 30 mmol/L (21-32); CHLORIDE,CL 99 mmol/L (100-108); CREATININE 0.8 mg/dL (0.6-1.0); ESTIMATED GFR 78 mL/min (>60); GLUCOSE RANDOM 137 mg/dL (74-106); POTASSIUM,K 5.3 mmol/L (3.6-5.2); SODIUM,NA 133 mmol/L (140-148)
[2024-03-13] MEDS: Iopamidol 612 MG/ML 100 ML Bottle IV SCH (16:01)
[2024-03-13] MEDS: Sodium Chloride 0.9% 100 ML IV SCH (16:01)
[2024-03-13] MEDS: Sodium Chloride 0.9% 10 ML Syringe FLUSH ONE (16:02)
[2024-03-13] MEDS: Sodium Chloride 0.9% 1,000 ML IV ONE (16:20)
[2024-03-13 17:36] VITALS: BP 177/71; PULSE 64
== END 2024-03-13 18:01 | disposition home or self-care (01) ==
LOC: JP.ED 13:49
DX: S22.32XA Fracture of one rib, left side, initial encounter for closed fracture (principal); I48.91 Unspecified atrial fibrillation; J44.9 Chronic obstructive pulmonary disease, unspecified; E11.9 Type 2 diabetes mellitus without complications; E78.00 Pure hypercholesterolemia, unspecified; F17.210 Nicotine dependence, cigarettes, uncomplicated; Z90.49 Acquired absence of other specified parts of digestive tract; Z90.710 Acquired absence of both cervix and uterus; Z88.5 Allergy status to narcotic agent; Z88.2 Allergy status to sulfonamides; Z88.6 Allergy status to analgesic agent; Z79.84 Long term (current) use of oral hypoglycemic drugs; Z79.01 Long term (current) use of anticoagulants; Z79.4 Long term (current) use of insulin; Z79.52 Long term (current) use of systemic steroids; Z79.899 Other long term (current) drug therapy; W01.198A Fall on same level from slipping, tripping and stumbling with subsequent striking against other object, initial encounter; Y92.019 Unspecified place in single-family (private) house as the place of occurrence of the external cause; Y93.01 Activity, walking, marching and hiking
CPT/HCPCS: 36415; 71260; 72125; 74177; 76377; 80048; 85025; 96360; 99283; 99284; J3490; J7030; Q9967

== ENCOUNTER 2024-04-30 15:20 | Emergency (ER) | payer MEDICARE, MEDICAID ==
[2024-04-30] MEDS ORDERED: Naloxone 0.4 MG/ML SDV IVPUSH PRN (15:56)
[2024-04-30 16:26] LABS: BASOPHILS PERCENT AUTO 0.3 % (0.1-1.3); EOSINOPHILS PERCENT AUTO 0.2 % (0.0-5.4); IMMATURE GRAN ABSOLUTE AUTO 0.03 K/uL (0.00-0.23); IMMATURE GRAN PERCENT AUTO 0.5 % (0.0-0.7); LYMPHOCYTES PERCENT AUTO 14.6 % (11.4-47.7); MEAN CORPUSCULAR HEMOGLOBIN 26.8 pg (31.6-35.5); MEAN CORPUSCULAR HGB CONC 31.4 g/dL (31.6-35.5); MEAN CORPUSCULAR VOLUME 85.6 fL (81.4-99.0); MONOCYTES ABSOLUTE AUTO 0.69 K/uL (0.20-0.90); MONOCYTES PERCENT AUTO 11.2 % (3.3-12.6); NEUTROPHILS ABSOLUTE AUTO 4.52 K/uL (1.0-7.6); NEUTROPHILS PERCENT AUTO 73.2 % (40.0-78.1); PLATELET COUNT,PLT 286 K/uL (130-375); RED BLOOD CELL COUNT 2.57 M/uL (3.77-5.24); WHITE BLOOD CELL COUNT,WBC 6.2 K/uL (3.2-11.0)
[2024-04-30 16:27] LABS: LACTIC ACID 2.4 mmol/L (0.7-2.1)
[2024-04-30 16:29] LABS: BASOPHILS ABSOLUTE AUTO 0.02 K/uL (0.00-0.10); EOSINOPHILS ABSOLUTE AUTO 0.01 K/uL (0.00-0.40); HEMOGLOBIN 6.9 g/dL (11.2-15.5)
[2024-04-30 16:43] LABS: C-REACTIVE PROTEIN 4.63 mg/dL (<0.50); CALCIUM 8.2 mg/dL (8.5-10.1); CREATININE 0.8 mg/dL (0.6-1.0); EST CRCL DRUG DOSING (CG) 50.27 mL/min; POTASSIUM,K 3.5 mmol/L (3.6-5.2)
[2024-04-30 16:45] LABS: ANION GAP 19.5 mmol/L (5.0-14.0)
[2024-04-30] MEDS: HYDROmorphone 1 MG/ML Syringe IVPUSH ONE (16:48)
[2024-04-30] MEDS: Albuterol/Ipratropium 3.0-0.5 MG/3 ML Neb Soln NEB ONE (16:48)
[2024-04-30] MEDS: Sodium Chloride 0.9% 1,000 ML IV ONE (16:48)
[2024-04-30] MEDS: Sodium Chloride 0.9% 80 ML IV SCH (17:23)
[2024-04-30] MEDS: Iopamidol 612 MG/ML 100 ML Bottle IV SCH (17:23)
[2024-04-30] MEDS: oxyCODONE 5 MG Tab PO ONE (19:53)
[2024-04-30] MEDS: Enalaprilat 1.25 MG/ML SDV IVPUSH ONE (22:26)
[2024-04-30] MEDS: Metoprolol Tartrate 25 MG Tab PO SCH (22:26)
[2024-05-01] MEDS: Morphine 2 MG/ML SYRINGE IVPUSH ONE (00:17)
[2024-05-01] MEDS: Morphine 4 MG/ML Syringe IVPUSH ONE (07:36)
[2024-05-01 12:10] VITALS: BP 174/66; PULSE 87
[2024-05-01] MEDS: oxyCODONE 5 MG Tab PO ONE (13:01)
== END 2024-05-01 14:37 ==
LOC: JP.ED 15:20
DX: J43.9 Emphysema, unspecified (principal); D64.9 Anemia, unspecified; I48.91 Unspecified atrial fibrillation; I10 Essential (primary) hypertension; E78.00 Pure hypercholesterolemia, unspecified; E11.9 Type 2 diabetes mellitus without complications; Z90.49 Acquired absence of other specified parts of digestive tract; Z90.710 Acquired absence of both cervix and uterus; Z87.891 Personal history of nicotine dependence; Z88.2 Allergy status to sulfonamides; Z88.5 Allergy status to narcotic agent; Z88.8 Allergy status to other drugs, medicaments and biological substances; Z79.4 Long term (current) use of insulin; Z79.84 Long term (current) use of oral hypoglycemic drugs; Z79.01 Long term (current) use of anticoagulants; Z79.899 Other long term (current) drug therapy
CPT/HCPCS: 36415; 36430; 71260; 71260-26; 74177; 74177-26; 80048; 83605; 84145; 85018; 85025; 85379; 86140; 86850; 86900; 86901; 86920; 86922; 94640; 96374; 96375; 96376; 99285-25; A9270-GY; J1171; J2270; J3490; J7030; J7620; P9016; Q9967

== ENCOUNTER 2024-05-12 18:53 | Inpatient (IN) | payer MEDICARE ==
[2024-05-12 19:19] LABS: BASOPHILS ABSOLUTE AUTO 0.06 K/uL (0.00-0.10); BASOPHILS PERCENT AUTO 0.4 % (0.1-1.3); EOSINOPHILS ABSOLUTE AUTO 0.03 K/uL (0.00-0.40); EOSINOPHILS PERCENT AUTO 0.2 % (0.0-5.4); HEMATOCRIT 30.4 % (34.3-46.0); HEMOGLOBIN 9.3 g/dL (11.2-15.5); IMMATURE GRAN ABSOLUTE AUTO 0.05 K/uL (0.00-0.23); IMMATURE GRAN PERCENT AUTO 0.4 % (0.0-0.7); LYMPHOCYTES ABSOLUTE AUTO 1.27 K/uL (0.8-3.3); LYMPHOCYTES PERCENT AUTO 9.1 % (11.4-47.7); MEAN CORPUSCULAR HEMOGLOBIN 26.3 pg (31.6-35.5); MEAN CORPUSCULAR HGB CONC 30.6 g/dL (31.6-35.5); MEAN CORPUSCULAR VOLUME 86.1 fL (81.4-99.0); MONOCYTES ABSOLUTE AUTO 1.07 K/uL (0.20-0.90); MONOCYTES PERCENT AUTO 7.7 % (3.3-12.6); NEUTROPHILS ABSOLUTE AUTO 11.43 K/uL (1.0-7.6); NEUTROPHILS PERCENT AUTO 82.2 % (40.0-78.1); PLATELET COUNT,PLT 460 K/uL (130-375); RED BLOOD CELL COUNT 3.53 M/uL (3.77-5.24); WHITE BLOOD CELL COUNT,WBC 13.9 K/uL (3.2-11.0)
[2024-05-12 19:20] LABS: BASE EXCESS VENOUS 0.4 mm/L; BICARBONATE,VENOUS 23.7 mmol/L; CARBOXYHEMOGLOBIN 4.2 % (0.0-1.6); METHEMOGLOBIN 0.7 %; O2 SATURATION VENOUS 79.9; PCO2 VENOUS 34.7 mm/Hg; PH,VENOUS 7.449 (7.350-7.450); PO2 VENOUS 44.7 mm/Hg; TOTAL HEMOGLOBIN 9.8 g/dL (12.0-16.0)
[2024-05-12 19:43] LABS: A/G RATIO 0.5 (1.2-2.2); ALANINE AMINOTRANSFERASE,ALT 15 U/L (12-78); ALBUMIN 2.6 g/dL (3.4-5.0); ALKALINE PHOSPHATASE 97 U/L (46-116); ANION GAP 15.3 mmol/L (5.0-14.0); ASPARTATE AMNIOTRANSFERASE,AST 12 U/L (15-37); BILIRUBIN TOTAL 0.5 mg/dL (0.2-1.0); BLOOD UREA NITROGEN,BUN 12 mg/dL (7-18); C-REACTIVE PROTEIN 2.93 mg/dL (<0.50); CALCIUM 8.7 mg/dL (8.5-10.1); CARBON DIOXIDE,CO2 25 mmol/L (21-32); CHLORIDE,CL 100 mmol/L (100-108); CREATININE 0.8 mg/dL (0.6-1.0); EST CRCL DRUG DOSING (CG) 52.34 mL/min; ESTIMATED GFR 78 mL/min (>60); GLUCOSE RANDOM 133 mg/dL (74-106); POTASSIUM,K 4.3 mmol/L (3.6-5.2); PROTEIN TOTAL,TP 7.4 g/dL (6.4-8.2); SODIUM,NA 136 mmol/L (140-148)
[2024-05-12 19:45] LABS: LACTIC ACID 3.6 mmol/L (0.4-2.0)
[2024-05-12] MEDS: Sodium Chloride 0.9% 1,000 ML IV SCH ×2 (21:21→23:35)
[2024-05-12] MEDS: VANCOmycin 1 GM in Sodium Chloride 0.9% 250 ML IV ONE (21:22)
[2024-05-12] MEDS: cefTRIAXone 2 GM in Sodium Chloride 0.9% 50 ML IV ONE (21:22)
[2024-05-12 21:58] LABS: APPEARANCE,URINE CLEAR (CLEAR); BILIRUBIN,URINE NEGATIVE (NEGATIVE); COLOR,URINE YELLOW (YELLOW); GLUCOSE,URINE NEGATIVE (NEGATIVE); KETONES,URINE NEGATIVE (NEGATIVE); LEUKOCYTE ESTERASE,URINE SMALL (NEGATIVE); NITRITE,URINE POSITIVE (NEGATIVE); OCCULT BLOOD,URINE NEGATIVE (NEGATIVE); PH,URINE 5.5 (5.0-8.0); PROTEIN,URINE 30 mg/dL (NEGATIVE)
[2024-05-12 22:06] LABS: RBC,URINE 0-5 (0-5); WBC,URINE 20-30 (0-5)
[2024-05-12 22:07] LABS: AMORPHOUS SEDIMENT,URINE OCCASIONAL; BACTERIA,URINE MANY; EPITHELIAL CELLS,URINE NOT SEEN; MUCUS,URINE RARE
[2024-05-12] MEDS ORDERED: Glucagon,Human Recombinant 1 MG Vial IM PRN (22:55)
[2024-05-12] MEDS ORDERED: 50% Dextrose in Water 50 ML Syringe IVPUSH PRN (22:55)
[2024-05-12] MEDS ORDERED: Polyethylene Glycol 3350 Powder 17 GM Packet PO PRN (22:55)
[2024-05-12] MEDS ORDERED: Docusate Sodium 100 MG Cap PO PRN (22:55)
[2024-05-12] MEDS ORDERED: Bisacodyl 5 MG Tab PO PRN (22:55)
[2024-05-12] MEDS ORDERED: Fluticasone NASAL Spray 16 GM Bottle NAS PRN (23:45)
[2024-05-12] MEDS: oxyCODONE 5 MG Tab PO PRN (23:55)
[2024-05-12] MEDS: Pantoprazole 40 MG Vial IVPUSH SCH (23:56)
[2024-05-13 06:08] LABS: BASOPHILS ABSOLUTE AUTO 0.07 K/uL (0.00-0.10); BASOPHILS PERCENT AUTO 0.7 % (0.1-1.3); EOSINOPHILS ABSOLUTE AUTO 0.04 K/uL (0.00-0.40); EOSINOPHILS PERCENT AUTO 0.4 % (0.0-5.4); HEMOGLOBIN 8.2 g/dL (11.2-15.5); IMMATURE GRAN ABSOLUTE AUTO 0.06 K/uL (0.00-0.23); IMMATURE GRAN PERCENT AUTO 0.6 % (0.0-0.7); LYMPHOCYTES ABSOLUTE AUTO 2.09 K/uL (0.8-3.3); LYMPHOCYTES PERCENT AUTO 20.6 % (11.4-47.7); MEAN CORPUSCULAR HGB CONC 30.4 g/dL (31.6-35.5); MEAN CORPUSCULAR VOLUME 85.7 fL (81.4-99.0); MONOCYTES ABSOLUTE AUTO 0.92 K/uL (0.20-0.90); MONOCYTES PERCENT AUTO 9.1 % (3.3-12.6); NEUTROPHILS ABSOLUTE AUTO 6.95 K/uL (1.0-7.6); NEUTROPHILS PERCENT AUTO 68.6 % (40.0-78.1); PLATELET COUNT,PLT 394 K/uL (130-375); RED BLOOD CELL COUNT 3.15 M/uL (3.77-5.24); WHITE BLOOD CELL COUNT,WBC 10.1 K/uL (3.2-11.0)
[2024-05-13 06:09] LABS: CALCIUM 8.2 mg/dL (8.5-10.1); CREATININE 0.7 mg/dL (0.6-1.0); EST CRCL DRUG DOSING (CG) 57.46 mL/min
[2024-05-13] MEDS: Metoprolol Tartrate 50 MG Tab PO SCH (08:18)
[2024-05-13] MEDS: DULoxetine 30 MG Cap PO SCH (08:18)
[2024-05-13] MEDS: Cholecalciferol (Vitamin D3) 25 MCG Tab PO SCH (08:19)
[2024-05-13] MEDS: Rivaroxaban 10 MG Tab PO SCH (08:19)
[2024-05-13] MEDS: Insulin Glargine,Human Rec. Analog 100 Units/ML 3 ML Pen SUBCUT SCH (09:39)
[2024-05-13] MEDS: VANCOmycin 1 GM in Sodium Chloride 0.9% 250 ML IV SCH (09:40)
[2024-05-13] MEDS: Gabapentin 400 MG Cap PO SCH (09:45)
[2024-05-13] MEDS: cefTRIAXone 2 GM in Sodium Chloride 0.9% 50 ML IV SCH ×2 (10:47)
[2024-05-13] MEDS: metroNIDAZOLE/Normal Saline 500 MG in Premix Bag 1 BAG IV SCH (13:10)
[2024-05-13] MEDS: Digoxin 125 MCG Tab PO SCH (13:11)
[2024-05-13] MEDS: cefTAZidime Pentahydrate 2 GM in Sodium Chloride 0.9% 50 ML IV SCH (14:14)
[2024-05-13] MEDS ORDERED: VANCOmycin 1.25 GM in Sodium Chloride 0.9% 250 ML IV SCH (20:00)
[2024-05-13] MEDS: Acetaminophen 500 MG Tab PO PRN (20:02)
[2024-05-13] MEDS: Magnesium Oxide 400 MG Tab PO SCH (20:03)
[2024-05-13] MEDS: Pantoprazole 40 MG Tab.CR PO SCH (20:04)
[2024-05-13] MEDS: atorvaSTATin 10 MG Tab PO SCH (20:04)
[2024-05-13] MEDS: buPROPion 150 MG Tab.ER PO SCH (20:05)
[2024-05-14 05:57] LABS: BASOPHILS ABSOLUTE AUTO 0.05 K/uL (0.00-0.10); BASOPHILS PERCENT AUTO 0.7 % (0.1-1.3); EOSINOPHILS ABSOLUTE AUTO 0.11 K/uL (0.00-0.40); EOSINOPHILS PERCENT AUTO 1.6 % (0.0-5.4); HEMATOCRIT 26.3 % (34.3-46.0); IMMATURE GRAN PERCENT AUTO 0.3 % (0.0-0.7); LYMPHOCYTES ABSOLUTE AUTO 1.38 K/uL (0.8-3.3); LYMPHOCYTES PERCENT AUTO 20.7 % (11.4-47.7); MEAN CORPUSCULAR HGB CONC 30.4 g/dL (31.6-35.5); MEAN CORPUSCULAR VOLUME 85.4 fL (81.4-99.0); MONOCYTES PERCENT AUTO 10.5 % (3.3-12.6); NEUTROPHILS ABSOLUTE AUTO 4.42 K/uL (1.0-7.6); NEUTROPHILS PERCENT AUTO 66.2 % (40.0-78.1); PLATELET COUNT,PLT 393 K/uL (130-375); RED BLOOD CELL COUNT 3.08 M/uL (3.77-5.24); WHITE BLOOD CELL COUNT,WBC 6.7 K/uL (3.2-11.0)
[2024-05-14 05:59] LABS: IMMATURE GRAN ABSOLUTE AUTO 0.02 K/uL (0.00-0.23)
[2024-05-14 06:17] LABS: CALCIUM 8.4 mg/dL (8.5-10.1); CREATININE 0.6 mg/dL (0.6-1.0); EST CRCL DRUG DOSING (CG) 67.03 mL/min; POTASSIUM,K 3.4 mmol/L (3.6-5.2)
[2024-05-14 06:24] LABS: ANION GAP 12.4 mmol/L (5.0-14.0)
[2024-05-14 06:39] LABS: MAGNESIUM 1.5 mg/dL (1.8-2.4); VANCOMYCIN RANDOM 15.3 ug/mL (0.0-50.0)
[2024-05-14] MEDS: Magnesium Sulf/Wat 2 GM/50 mL 2 GM in Premix Bag 1 BAG IV SCH (08:42)
[2024-05-14] MEDS: Potassium Chloride 20 MEQ Tab.ER PO ONE ×2 (08:43→17:25)
[2024-05-14] MEDS: Magnesium Oxide 400 MG Tab PO SCH (08:43)
[2024-05-14] MEDS: Insulin Lispro 100 Unit/ML 3 ML KwikPen SUBCUT SCH ×2 (11:58→12:25)
[2024-05-15 06:14] LABS: CALCIUM 8.5 mg/dL (8.5-10.1); CREATININE 0.7 mg/dL (0.6-1.0); EST CRCL DRUG DOSING (CG) 57.46 mL/min; MAGNESIUM 1.8 mg/dL (1.8-2.4); POTASSIUM,K 4.4 mmol/L (3.6-5.2)
[2024-05-15 06:17] LABS: ANION GAP 12.4 mmol/L (5.0-14.0)
[2024-05-15 06:40] LABS: HEMOGLOBIN A1C 6.6 % (4.5-6.2)
[2024-05-15] MEDS ORDERED: Sodium Chloride 0.9% 10 ML Syringe IV PRN (10:29)
[2024-05-16 07:32] LABS: CREATININE 0.7 mg/dL (0.6-1.0); EST CRCL DRUG DOSING (CG) 57.46 mL/min
[2024-05-16] MEDS: VANCOmycin 0.75 GM in Sodium Chloride 0.9% 250 ML IV SCH (11:27)
[2024-05-16] MEDS ORDERED: Furosemide 40 MG/4 ML VIAL IVPUSH ONE (12:15)
[2024-05-16] MEDS: Enoxaparin 40 MG/0.4 ML Syringe SUBCUT SCH (14:16)
[2024-05-16] MEDS: Divalproex Sodium Delayed-Release 125 MG Cap.Sprink PO SCH (16:35)
[2024-05-17 11:16] VITALS: PULSE 59
[2024-05-17] MEDS: Lisinopril 10 MG Tab PO SCH (14:03)
[2024-05-17 14:06] VITALS: BP 148/59
[2024-05-17] MEDS ORDERED: metFORMIN 500 MG Tab PO SCH (17:00)
[2024-05-17] MEDS ORDERED: Insulin Lispro Protamine/Lispro 75-25 100 Units/ML 10 ML Vial SUBCUT SCH (21:00)
== END 2024-05-17 15:45 | DRG 872 ==
LOC: JP.ED 18:53 → JP.MS 22:22
PROVIDERS: ADMIT Nurse Practitioner; ATTEND Hospitalist
PROC: 3E03329 Introduction of Other Anti-infective into Peripheral Vein, Percutaneous Approach (ICD-10-PCS; principal; 2024-05-12)
PROC: 4A033R1 Measurement of Arterial Saturation, Peripheral, Percutaneous Approach (ICD-10-PCS; 2024-05-12)
DX: A41.01 Sepsis due to Methicillin susceptible Staphylococcus aureus (principal); I48.91 Unspecified atrial fibrillation; M46.28 Osteomyelitis of vertebra, sacral and sacrococcygeal region; N39.0 Urinary tract infection, site not specified; E11.9 Type 2 diabetes mellitus without complications; Z90.49 Acquired absence of other specified parts of digestive tract; I48.11 Longstanding persistent atrial fibrillation; L03.319 Cellulitis of trunk, unspecified; E11.622 Type 2 diabetes mellitus with other skin ulcer; L98.429 Non-pressure chronic ulcer of back with unspecified severity; J44.9 Chronic obstructive pulmonary disease, unspecified; H26.9 Unspecified cataract; H91.90 Unspecified hearing loss, unspecified ear; H54.7 Unspecified visual loss; Z66 Do not resuscitate; F17.210 Nicotine dependence, cigarettes, uncomplicated; E78.00 Pure hypercholesterolemia, unspecified; I10 Essential (primary) hypertension; M19.90 Unspecified osteoarthritis, unspecified site; F32.A Depression, unspecified; Z98.891 History of uterine scar from previous surgery; Z88.5 Allergy status to narcotic agent; Z88.2 Allergy status to sulfonamides; Z88.8 Allergy status to other drugs, medicaments and biological substances; Z79.1 Long term (current) use of non-steroidal anti-inflammatories (NSAID); Z79.84 Long term (current) use of oral hypoglycemic drugs; Z79.899 Other long term (current) drug therapy; Z79.02 Long term (current) use of antithrombotics/antiplatelets; Z79.4 Long term (current) use of insulin; Z98.890 Other specified postprocedural states; Z90.710 Acquired absence of both cervix and uterus; Z98.1 Arthrodesis status; Z79.01 Long term (current) use of anticoagulants; Z95.0 Presence of cardiac pacemaker
CPT/HCPCS: 36415; 71045 ×2; 74177; 80053; 81001; 82803; 83605; 85025; 86140; 87040 ×2; 87086; 87186; 96361; 96365; 96368; 99285; J0696; J7030; J7050; 80048; 80202; 82565; 82947; 83036; 83735; 87088; 97110-GP; 97162-GP; 97165-GO; 99223; 99231; 99232; 99238; A9270-GY; J0713; J1650; J1815; J1815-GY; J1836; J2470; J3475

== ENCOUNTER 2024-05-24 11:45 | Emergency (ER) | payer MEDICARE ==
[2024-05-24 12:38] LABS: BASOPHILS ABSOLUTE AUTO 0.06 K/uL (0.00-0.10); BASOPHILS PERCENT AUTO 0.6 % (0.1-1.3); EOSINOPHILS PERCENT AUTO 0.2 % (0.0-5.4); HEMATOCRIT 26.1 % (34.3-46.0); IMMATURE GRAN ABSOLUTE AUTO 0.06 K/uL (0.00-0.23); IMMATURE GRAN PERCENT AUTO 0.6 % (0.0-0.7); LYMPHOCYTES ABSOLUTE AUTO 0.99 K/uL (0.8-3.3); LYMPHOCYTES PERCENT AUTO 9.2 % (11.4-47.7); MEAN CORPUSCULAR HEMOGLOBIN 25.2 pg (31.6-35.5); MEAN CORPUSCULAR HGB CONC 30.7 g/dL (31.6-35.5); MEAN CORPUSCULAR VOLUME 82.1 fL (81.4-99.0); MONOCYTES PERCENT AUTO 11.1 % (3.3-12.6); NEUTROPHILS ABSOLUTE AUTO 8.44 K/uL (1.0-7.6); NEUTROPHILS PERCENT AUTO 78.3 % (40.0-78.1); PLATELET COUNT,PLT 309 K/uL (130-375); RED BLOOD CELL COUNT 3.18 M/uL (3.77-5.24); WHITE BLOOD CELL COUNT,WBC 10.8 K/uL (3.2-11.0)
[2024-05-24] MEDS: cefTRIAXone 1 GM in Sodium Chloride 0.9% 50 ML IV ONE (12:47)
[2024-05-24 12:48] LABS: BICARBONATE,VENOUS 27.6 mmol/L; CARBOXYHEMOGLOBIN 2.5 % (0.0-1.6); EOSINOPHILS ABSOLUTE AUTO 0.02 K/uL (0.00-0.40); METHEMOGLOBIN 0.7 %; O2 SATURATION VENOUS 75.1; OXYHEMOGLOBIN 72.7 %; PCO2 VENOUS 45.2 mm/Hg; PH,VENOUS 7.403 (7.350-7.450); PO2 VENOUS 43.8 mm/Hg; TOTAL HEMOGLOBIN 8.1 g/dL (12.0-16.0)
[2024-05-24] MEDS: Sodium Chloride 0.9% 500 ML IV ONE (12:49)
[2024-05-24 13:20] LABS: A/G RATIO 0.6 (1.2-2.2); ALANINE AMINOTRANSFERASE,ALT 14 U/L (12-78); ALBUMIN 2.7 g/dL (3.4-5.0); ALKALINE PHOSPHATASE 72 U/L (46-116); ANION GAP 11.6 mmol/L (5.0-14.0); ASPARTATE AMNIOTRANSFERASE,AST 13 U/L (15-37); BILIRUBIN TOTAL 0.5 mg/dL (0.2-1.0); BLOOD UREA NITROGEN,BUN 18 mg/dL (7-18); C-REACTIVE PROTEIN 10.13 mg/dL (<0.50); CALCIUM 9.2 mg/dL (8.5-10.1); CARBON DIOXIDE,CO2 28 mmol/L (21-32); CHLORIDE,CL 99 mmol/L (100-108); CREATININE 0.8 mg/dL (0.6-1.0); EST CRCL DRUG DOSING (CG) 61.81 mL/min; ESTIMATED GFR 78 mL/min (>60); GLUCOSE RANDOM 118 mg/dL (74-106); POTASSIUM,K 3.6 mmol/L (3.6-5.2); PRO B-TYPE NATRIUR PEPT,BNPPRO 1624 pg/mL (5-125); PROTEIN TOTAL,TP 7.4 g/dL (6.4-8.2); SODIUM,NA 135 mmol/L (140-148); TROPONIN I HIGH SENSITIVITY 12.4 pg/mL (<=60.3)
[2024-05-24] MEDS: Cephalexin 250 MG Cap PO ONE (16:42)
[2024-05-24 18:06] VITALS: BP 159/58; PULSE 90
== END 2024-05-24 18:07 ==
LOC: JP.ED 11:45
DX: L89.159 Pressure ulcer of sacral region, unspecified stage (principal); I48.91 Unspecified atrial fibrillation; I10 Essential (primary) hypertension; E78.00 Pure hypercholesterolemia, unspecified; M19.90 Unspecified osteoarthritis, unspecified site; E11.9 Type 2 diabetes mellitus without complications; R06.9 Unspecified abnormalities of breathing; Z90.49 Acquired absence of other specified parts of digestive tract; Z90.710 Acquired absence of both cervix and uterus; Z88.2 Allergy status to sulfonamides; Z88.5 Allergy status to narcotic agent; Z88.8 Allergy status to other drugs, medicaments and biological substances; Z79.4 Long term (current) use of insulin; Z79.82 Long term (current) use of aspirin; Z79.84 Long term (current) use of oral hypoglycemic drugs; Z79.01 Long term (current) use of anticoagulants; Z79.899 Other long term (current) drug therapy
CPT/HCPCS: 36415; 71045; 80053; 80162; 82803; 83605; 83880; 84145; 84484; 85025; 86140; 87040; 93005; 93010; 96361; 96365; 99284; 99285; A9270; J0696

== ENCOUNTER 2024-08-23 17:29 | Inpatient (IN) | payer MEDICAID, MEDICARE ==
[2024-08-23 17:45] LABS: BASOPHILS ABSOLUTE AUTO 0.03 K/uL (0.00-0.10); BASOPHILS PERCENT AUTO 0.2 % (0.1-1.3); HEMATOCRIT 33.9 % (34.3-46.0); HEMOGLOBIN 11.2 g/dL (11.2-15.5); IMMATURE GRAN ABSOLUTE AUTO 0.08 K/uL (0.00-0.23); IMMATURE GRAN PERCENT AUTO 0.6 % (0.0-0.7); LYMPHOCYTES ABSOLUTE AUTO 0.43 K/uL (0.8-3.3); MEAN CORPUSCULAR HEMOGLOBIN 27.6 pg (31.6-35.5); MEAN CORPUSCULAR VOLUME 83.5 fL (81.4-99.0); MONOCYTES ABSOLUTE AUTO 0.78 K/uL (0.20-0.90); MONOCYTES PERCENT AUTO 5.5 % (3.3-12.6); NEUTROPHILS PERCENT AUTO 90.7 % (40.0-78.1); PLATELET COUNT,PLT 230 K/uL (130-375); RED BLOOD CELL COUNT 4.06 M/uL (3.77-5.24); WHITE BLOOD CELL COUNT,WBC 14.1 K/uL (3.2-11.0)
[2024-08-23 18:11] LABS: A/G RATIO 0.6 (1.2-2.2); ALANINE AMINOTRANSFERASE,ALT 21 U/L (12-78); ALBUMIN 2.5 g/dL (3.4-5.0); ALKALINE PHOSPHATASE 95 U/L (46-116); ASPARTATE AMNIOTRANSFERASE,AST 15 U/L (15-37); BILIRUBIN TOTAL 1.2 mg/dL (0.2-1.0); BLOOD UREA NITROGEN,BUN 12 mg/dL (7-18); CARBON DIOXIDE,CO2 21 mmol/L (21-32); CHLORIDE,CL 100 mmol/L (100-108); CREATININE 0.7 mg/dL (0.6-1.0); EST CRCL DRUG DOSING (CG) 56.61 mL/min; ESTIMATED GFR 91 mL/min (>60); GLUCOSE RANDOM 243 mg/dL (74-106); POTASSIUM,K 3.7 mmol/L (3.6-5.2); SODIUM,NA 135 mmol/L (140-148); TROPONIN I HIGH SENSITIVITY 22.1 pg/mL (<=60.3)
[2024-08-23] MEDS: Albuterol/Ipratropium 3.0-0.5 MG/3 ML Neb Soln NEB ONE (18:16)
[2024-08-23] MEDS: methylPREDNISolone Sodium Succinate 125 MG/2 ML SDV IVPUSH ONE (18:17)
[2024-08-23 18:18] LABS: CALCIUM 8.8 mg/dL (8.5-10.1)
[2024-08-23 18:20] LABS: ANION GAP 17.7 mmol/L (5.0-14.0)
[2024-08-23] MEDS: Ondansetron 4 MG/2 ML SDV IVPUSH ONE (18:20)
[2024-08-23] MEDS: Doxycycline 100 MG Cap PO ONE (18:41)
[2024-08-23] MEDS: Sodium Chloride 0.9% 1,000 ML IV SCH ×3 (18:42→22:25)
[2024-08-23] MEDS: cefTRIAXone 1 GM in Sodium Chloride 0.9% 50 ML IV ONE (18:42)
[2024-08-23] MEDS ORDERED: Acetaminophen 325 MG Tab PO PRN (20:34)
[2024-08-23] MEDS ORDERED: Ondansetron 4 MG/2 ML SDV IV PRN (20:34)
[2024-08-23] MEDS ORDERED: Ondansetron 4 MG Tab.DIS PO PRN (20:34)
[2024-08-23] MEDS ORDERED: 50% Dextrose in Water 50 ML Syringe IVPUSH PRN (21:27)
[2024-08-23] MEDS ORDERED: Diclofenac Sodium 1% Gel 100 GM Tube TOP PRN (21:27)
[2024-08-23] MEDS ORDERED: Glucagon,Human Recombinant 1 MG Vial IM PRN (21:27)
[2024-08-23] MEDS: oxyCODONE 5 MG Tab PO PRN (22:18)
[2024-08-23] MEDS: Albuterol/Ipratropium 3.0-0.5 MG/3 ML Neb Soln NEB SCH (22:19)
[2024-08-23] MEDS: buPROPion 150 MG Tab.ER PO SCH (22:19)
[2024-08-23] MEDS: DULoxetine 30 MG Cap PO SCH (22:19)
[2024-08-23] MEDS: Metoprolol Tartrate 25 MG Tab PO SCH (22:20)
[2024-08-23] MEDS: Albuterol 0.083% 2.5 MG/3 ML Neb Soln NEB PRN (23:55)
[2024-08-24 06:04] LABS: HEMATOCRIT 30.9 % (34.3-46.0); HEMOGLOBIN 9.9 g/dL (11.2-15.5); MEAN CORPUSCULAR HEMOGLOBIN 27.3 pg (31.6-35.5); MEAN CORPUSCULAR VOLUME 85.1 fL (81.4-99.0); RED BLOOD CELL COUNT 3.63 M/uL (3.77-5.24); WHITE BLOOD CELL COUNT,WBC 9.8 K/uL (3.2-11.0)
[2024-08-24 06:22] LABS: CALCIUM 8.4 mg/dL (8.5-10.1); CREATININE 0.7 mg/dL (0.6-1.0); EST CRCL DRUG DOSING (CG) 56.61 mL/min; POTASSIUM,K 3.9 mmol/L (3.6-5.2)
[2024-08-24 06:36] LABS: ANION GAP 12.9 mmol/L (5.0-14.0); C-REACTIVE PROTEIN 26.72 mg/dL (<0.50)
[2024-08-24] MEDS: Rivaroxaban 10 MG Tab PO SCH (08:34)
[2024-08-24] MEDS: amLODIPine 5 MG Tab PO SCH (08:34)
[2024-08-24] MEDS: Cholecalciferol (Vitamin D3) 25 MCG Tab PO SCH (08:34)
[2024-08-24] MEDS: Multivitamins with Iron/Calcium/Folic Acid/Minerals Tab PO SCH (08:34)
[2024-08-24] MEDS: Digoxin 125 MCG Tab PO SCH (08:34)
[2024-08-24] MEDS: Doxycycline 100 MG Cap PO SCH (08:35)
[2024-08-24] MEDS: Aspirin 81 MG Tab.Chew PO SCH (08:35)
[2024-08-24] MEDS: Magnesium Oxide 400 MG Tab PO SCH (08:35)
[2024-08-24] MEDS: Insulin Lispro 100 Unit/ML 3 ML KwikPen SUBCUT SCH (09:26)
[2024-08-24] MEDS: Insulin Glargine,Human Rec. Analog 100 Units/ML 3 ML Pen SUBCUT SCH (09:26)
[2024-08-24] MEDS: Sodium Chloride 0.9% 1,000 ML IV SCH (12:13)
[2024-08-24] MEDS: cefTRIAXone 1 GM in Sodium Chloride 0.9% 50 ML IV SCH (17:00)
[2024-08-24] MEDS: tiZANidine 2 MG Tab PO PRN (19:14)
[2024-08-24] MEDS: Gabapentin 300 MG Cap PO SCH (21:17)
[2024-08-24] MEDS: atorvaSTATin 10 MG Tab PO SCH (21:18)
[2024-08-24] MEDS: metFORMIN 500 MG Tab PO SCH (21:19)
[2024-08-24] MEDS: Metoprolol Tartrate 50 MG Tab PO SCH (21:26)
[2024-08-24] MEDS: Sodium Chloride 0.9% 500 ML IV ONE (22:01)
[2024-08-26] MEDS: Melatonin 3 MG Tab PO PRN (01:48)
[2024-08-28 06:00] LABS: HEMATOCRIT 31.7 % (34.3-46.0); HEMOGLOBIN 10.2 g/dL (11.2-15.5); MEAN CORPUSCULAR HEMOGLOBIN 27.3 pg (31.6-35.5); MEAN CORPUSCULAR HGB CONC 32.2 g/dL (31.6-35.5); RED BLOOD CELL COUNT 3.73 M/uL (3.77-5.24); WHITE BLOOD CELL COUNT,WBC 8.1 K/uL (3.2-11.0)
[2024-08-28 06:33] LABS: C-REACTIVE PROTEIN 7.84 mg/dL (<0.50); CALCIUM 8.8 mg/dL (8.5-10.1); CREATININE 0.5 mg/dL (0.6-1.0); EST CRCL DRUG DOSING (CG) 79.25 mL/min; POTASSIUM,K 3.2 mmol/L (3.6-5.2)
[2024-08-28 06:35] LABS: ANION GAP 13.2 mmol/L (5.0-14.0)
[2024-08-28] MEDS: Furosemide 20 MG/2 ML VIAL IVPUSH ONE (11:52)
[2024-08-28] MEDS: Potassium Chloride 20 MEQ Tab.ER PO SCH (11:52)
[2024-08-28] MEDS: Furosemide 40 MG/4 ML VIAL IVPUSH ONE (17:29)
[2024-08-29 06:18] LABS: CREATININE 0.6 mg/dL (0.6-1.0); EST CRCL DRUG DOSING (CG) 66.05 mL/min; POTASSIUM,K 3.9 mmol/L (3.6-5.2)
[2024-08-29 06:20] LABS: ANION GAP 11.9 mmol/L (5.0-14.0)
[2024-08-29] MEDS: Cefdinir 300 MG Cap PO SCH (20:58)
[2024-08-30 06:01] LABS: HEMATOCRIT 32.7 % (34.3-46.0); HEMOGLOBIN 10.2 g/dL (11.2-15.5); MEAN CORPUSCULAR HEMOGLOBIN 26.7 pg (31.6-35.5); MEAN CORPUSCULAR HGB CONC 31.2 g/dL (31.6-35.5); MEAN CORPUSCULAR VOLUME 85.6 fL (81.4-99.0); RED BLOOD CELL COUNT 3.82 M/uL (3.77-5.24); WHITE BLOOD CELL COUNT,WBC 7.8 K/uL (3.2-11.0)
[2024-08-30 06:22] LABS: ANION GAP 10.5 mmol/L (5.0-14.0); C-REACTIVE PROTEIN 8.54 mg/dL (<0.50); CALCIUM 9.6 mg/dL (8.5-10.1); CREATININE 0.6 mg/dL (0.6-1.0); EST CRCL DRUG DOSING (CG) 66.05 mL/min; POTASSIUM,K 4.5 mmol/L (3.6-5.2)
[2024-08-30] MEDS: Levofloxacin 250 MG Tab PO SCH (12:03)
[2024-08-30] MEDS: Gabapentin 400 MG Cap PO SCH (20:59)
[2024-08-31] MEDS: Potassium Chloride 20 MEQ Tab.ER PO SCH (16:50)
[2024-09-01 05:57] LABS: HEMATOCRIT 34.9 % (34.3-46.0); HEMOGLOBIN 11.3 g/dL (11.2-15.5); MEAN CORPUSCULAR HEMOGLOBIN 27.3 pg (31.6-35.5); MEAN CORPUSCULAR HGB CONC 32.4 g/dL (31.6-35.5); MEAN CORPUSCULAR VOLUME 84.3 fL (81.4-99.0); RED BLOOD CELL COUNT 4.14 M/uL (3.77-5.24); WHITE BLOOD CELL COUNT,WBC 7.6 K/uL (3.2-11.0)
[2024-09-01 06:13] LABS: C-REACTIVE PROTEIN 4.56 mg/dL (<0.50); CALCIUM 9.6 mg/dL (8.5-10.1); CREATININE 0.7 mg/dL (0.6-1.0); EST CRCL DRUG DOSING (CG) 56.61 mL/min; POTASSIUM,K 4.5 mmol/L (3.6-5.2)
[2024-09-01 06:17] LABS: ANION GAP 12.5 mmol/L (5.0-14.0)
[2024-09-02] MEDS: Sennosides/Docusate Sodium 50-8.6 MG Tab PO PRN (08:33)
[2024-09-02 12:16] LABS: HEMATOCRIT 35.8 % (34.3-46.0); HEMOGLOBIN 11.2 g/dL (11.2-15.5); MEAN CORPUSCULAR HEMOGLOBIN 26.7 pg (31.6-35.5); MEAN CORPUSCULAR HGB CONC 31.3 g/dL (31.6-35.5); MEAN CORPUSCULAR VOLUME 85.4 fL (81.4-99.0); RED BLOOD CELL COUNT 4.19 M/uL (3.77-5.24); WHITE BLOOD CELL COUNT,WBC 11.3 K/uL (3.2-11.0)
[2024-09-03 06:08] LABS: HEMATOCRIT 34.1 % (34.3-46.0); HEMOGLOBIN 10.7 g/dL (11.2-15.5); MEAN CORPUSCULAR HEMOGLOBIN 26.8 pg (31.6-35.5); MEAN CORPUSCULAR HGB CONC 31.4 g/dL (31.6-35.5); MEAN CORPUSCULAR VOLUME 85.3 fL (81.4-99.0); WHITE BLOOD CELL COUNT,WBC 12.5 K/uL (3.2-11.0)
[2024-09-03 06:28] LABS: A/G RATIO 0.6 (1.2-2.2); ALANINE AMINOTRANSFERASE,ALT 19 U/L (12-78); ALBUMIN 2.8 g/dL (3.4-5.0); ALKALINE PHOSPHATASE 118 U/L (46-116); ASPARTATE AMNIOTRANSFERASE,AST 12 U/L (15-37); BILIRUBIN TOTAL 0.5 mg/dL (0.2-1.0); BLOOD UREA NITROGEN,BUN 19 mg/dL (7-18); C-REACTIVE PROTEIN 2.43 mg/dL (<0.50); CALCIUM 9.1 mg/dL (8.5-10.1); CARBON DIOXIDE,CO2 24 mmol/L (21-32); CHLORIDE,CL 99 mmol/L (100-108); CREATININE 0.9 mg/dL (0.6-1.0); EST CRCL DRUG DOSING (CG) 44.03 mL/min; ESTIMATED GFR 68 mL/min (>60); GLUCOSE RANDOM 68 mg/dL (74-106); POTASSIUM,K 5.2 mmol/L (3.6-5.2); PROTEIN TOTAL,TP 7.5 g/dL (6.4-8.2); SODIUM,NA 132 mmol/L (140-148)
[2024-09-03 06:30] LABS: ANION GAP 14.2 mmol/L (5.0-14.0)
[2024-09-03] MEDS: Cefepime 2 GM in Sodium Chloride 0.9% 50 ML IV SCH (16:22)
[2024-09-04 05:52] LABS: HEMATOCRIT 33.6 % (34.3-46.0); HEMOGLOBIN 10.6 g/dL (11.2-15.5); MEAN CORPUSCULAR HGB CONC 31.5 g/dL (31.6-35.5); MEAN CORPUSCULAR VOLUME 85.7 fL (81.4-99.0); RED BLOOD CELL COUNT 3.92 M/uL (3.77-5.24); WHITE BLOOD CELL COUNT,WBC 12.1 K/uL (3.2-11.0)
[2024-09-04 06:27] LABS: A/G RATIO 0.6 (1.2-2.2); ALANINE AMINOTRANSFERASE,ALT 15 U/L (12-78); ALBUMIN 2.7 g/dL (3.4-5.0); ALKALINE PHOSPHATASE 116 U/L (46-116); ASPARTATE AMNIOTRANSFERASE,AST 14 U/L (15-37); BILIRUBIN TOTAL 0.6 mg/dL (0.2-1.0); BLOOD UREA NITROGEN,BUN 17 mg/dL (7-18); C-REACTIVE PROTEIN 4.61 mg/dL (<0.50); CALCIUM 9.1 mg/dL (8.5-10.1); CARBON DIOXIDE,CO2 19 mmol/L (21-32); CHLORIDE,CL 97 mmol/L (100-108); CREATININE 0.8 mg/dL (0.6-1.0); EST CRCL DRUG DOSING (CG) 49.53 mL/min; ESTIMATED GFR 78 mL/min (>60); GLUCOSE RANDOM 166 mg/dL (74-106); POTASSIUM,K 5.1 mmol/L (3.6-5.2); PROTEIN TOTAL,TP 7.4 g/dL (6.4-8.2); SODIUM,NA 127 mmol/L (140-148)
[2024-09-04 07:09] LABS: ANION GAP 16.1 mmol/L (5.0-14.0)
[2024-09-04] MEDS ORDERED: Levofloxacin 250 MG Tab PO SCH (07:30)
[2024-09-04] MEDS: Gabapentin 300 MG Cap PO SCH (21:53)
[2024-09-05 05:48] LABS: HEMATOCRIT 33.9 % (34.3-46.0); HEMOGLOBIN 10.9 g/dL (11.2-15.5); MEAN CORPUSCULAR HEMOGLOBIN 27.2 pg (31.6-35.5); MEAN CORPUSCULAR HGB CONC 32.2 g/dL (31.6-35.5); MEAN CORPUSCULAR VOLUME 84.5 fL (81.4-99.0); RED BLOOD CELL COUNT 4.01 M/uL (3.77-5.24); WHITE BLOOD CELL COUNT,WBC 15.4 K/uL (3.2-11.0)
[2024-09-05 06:14] LABS: A/G RATIO 0.6 (1.2-2.2); ALANINE AMINOTRANSFERASE,ALT 22 U/L (12-78); ALBUMIN 2.7 g/dL (3.4-5.0); ALKALINE PHOSPHATASE 115 U/L (46-116); ASPARTATE AMNIOTRANSFERASE,AST 21 U/L (15-37); BILIRUBIN TOTAL 0.5 mg/dL (0.2-1.0); BLOOD UREA NITROGEN,BUN 17 mg/dL (7-18); C-REACTIVE PROTEIN 5.51 mg/dL (<0.50); CARBON DIOXIDE,CO2 24 mmol/L (21-32); CHLORIDE,CL 100 mmol/L (100-108); CREATININE 0.8 mg/dL (0.6-1.0); EST CRCL DRUG DOSING (CG) 47.46 mL/min; ESTIMATED GFR 78 mL/min (>60); GLUCOSE RANDOM 227 mg/dL (74-106); POTASSIUM,K 5.2 mmol/L (3.6-5.2); PROTEIN TOTAL,TP 7.6 g/dL (6.4-8.2); SODIUM,NA 133 mmol/L (140-148)
[2024-09-05 06:15] LABS: ANION GAP 14.2 mmol/L (5.0-14.0)
[2024-09-05] MEDS: Iopamidol 612 MG/ML 100 ML Bottle IV ONE (10:02)
[2024-09-05] MEDS: Sodium Chloride 0.9% 100 ML IV ONE (10:03)
[2024-09-05] MEDS: Sodium Chloride 0.9% 10 ML Syringe FLUSH ONE (10:03)
[2024-09-05] MEDS ORDERED: Sodium Chloride 0.9% 10 ML Syringe IV PRN (10:46)
[2024-09-05] MEDS: cefTRIAXone 2 GM in Sodium Chloride 0.9% 50 ML IV SCH (16:08)
[2024-09-05] MEDS ORDERED: VANCOmycin 1.25 GM in Sodium Chloride 0.9% 250 ML IV ONE (17:00)
[2024-09-05] MEDS: VANCOmycin 1.25 GM in Sodium Chloride 0.9% 250 ML IV ONE (17:03)
[2024-09-06 06:07] LABS: CREATININE 0.7 mg/dL (0.5-1.0); EST CRCL DRUG DOSING (CG) 56.61 mL/min
[2024-09-06 07:27] LABS: HEMOGLOBIN 11.3 g/dL (11.2-15.5); MEAN CORPUSCULAR HEMOGLOBIN 27.6 pg (31.6-35.5); MEAN CORPUSCULAR HGB CONC 32.3 g/dL (31.6-35.5); MEAN CORPUSCULAR VOLUME 85.4 fL (81.4-99.0); RED BLOOD CELL COUNT 4.1 M/uL (3.77-5.24); WHITE BLOOD CELL COUNT,WBC 10.6 K/uL (3.2-11.0)
[2024-09-06 07:37] LABS: A/G RATIO 0.5 (1.2-2.2); ALANINE AMINOTRANSFERASE,ALT 21 U/L (12-78); ALBUMIN 2.7 g/dL (3.4-5.0); ALKALINE PHOSPHATASE 122 U/L (46-116); ANION GAP 14.6 mmol/L (5.0-14.0); ASPARTATE AMNIOTRANSFERASE,AST 21 U/L (15-37); BILIRUBIN TOTAL 0.4 mg/dL (0.2-1.0); BLOOD UREA NITROGEN,BUN 14 mg/dL (7-18); CALCIUM 9.4 mg/dL (8.5-10.1); CARBON DIOXIDE,CO2 25 mmol/L (21-32); CHLORIDE,CL 103 mmol/L (100-108); CREATININE 0.8 mg/dL (0.6-1.0); EST CRCL DRUG DOSING (CG) 49.53 mL/min; ESTIMATED GFR 78 mL/min (>60); GLUCOSE RANDOM 133 mg/dL (74-106); POTASSIUM,K 5.6 mmol/L (3.6-5.2); PROTEIN TOTAL,TP 7.9 g/dL (6.4-8.2); SODIUM,NA 137 mmol/L (140-148)
[2024-09-06] MEDS: VANCOmycin 1 GM in Sodium Chloride 0.9% 250 ML IV SCH (10:36)
[2024-09-06 12:56] VITALS: BP 155/73; PULSE 92
== END 2024-09-06 13:05 | disposition home health service (06) | DRG 871 ==
LOC: JP.ED 17:29 → JP.MS 19:54
PROVIDERS: ADMIT Registered Nurse; ATTEND Hospitalist
DX: A41.01 Sepsis due to Methicillin susceptible Staphylococcus aureus (principal); J18.9 Pneumonia, unspecified organism; L89.154 Pressure ulcer of sacral region, stage 4; J96.01 Acute respiratory failure with hypoxia; J44.0 Chronic obstructive pulmonary disease with (acute) lower respiratory infection; Z88.6 Allergy status to analgesic agent; M46.20 Osteomyelitis of vertebra, site unspecified; Z88.8 Allergy status to other drugs, medicaments and biological substances; Z66 Do not resuscitate; H91.90 Unspecified hearing loss, unspecified ear; H54.7 Unspecified visual loss; I48.91 Unspecified atrial fibrillation; Z90.710 Acquired absence of both cervix and uterus; E78.00 Pure hypercholesterolemia, unspecified; I10 Essential (primary) hypertension; M19.90 Unspecified osteoarthritis, unspecified site; F32.A Depression, unspecified; E11.9 Type 2 diabetes mellitus without complications; K80.20 Calculus of gallbladder without cholecystitis without obstruction; Z88.5 Allergy status to narcotic agent; Z88.2 Allergy status to sulfonamides; Z79.84 Long term (current) use of oral hypoglycemic drugs; Z79.899 Other long term (current) drug therapy; Z79.82 Long term (current) use of aspirin; Z79.4 Long term (current) use of insulin; Z79.01 Long term (current) use of anticoagulants; Z95.0 Presence of cardiac pacemaker; Z90.49 Acquired absence of other specified parts of digestive tract; Z97.10 Presence of artificial limb (complete) (partial), unspecified; Z98.1 Arthrodesis status; Z87.891 Personal history of nicotine dependence
CPT/HCPCS: 36415; 71045 ×2; 80053; 80162; 83605; 84484; 85025; 86140; 87040 ×2; 94640; 96365; 96375; 99285 ×2; A9270 ×2; J0696; J2405; J2919; J7030; 70450; 71046; 71046-26; 71250; 71250-26; 71260; 74019; 74177; 80048; 82565; 82947; 85027; 87070; 87205; 94667; 97110-GO; 97110-GP; 97162-GP; 97165-GO; 97530-GP; 99223; 99231; 99232; 99239; J0692; J1815; J1815-GY; J1938; J7040; J7050; Q9967

== ENCOUNTER 2025-01-25 08:58 | Inpatient (IN) | payer MEDICARE ==
[2025-01-25 09:15] LABS: BASE EXCESS VENOUS -2.2 mm/L; BICARBONATE,VENOUS 19.2 mmol/L; O2 SATURATION VENOUS 89.9; OXYHEMOGLOBIN 87.3 %; PCO2 VENOUS 24.6 mm/Hg; PH,VENOUS 7.503 (7.350-7.450); PO2 VENOUS 58.1 mm/Hg; TOTAL HEMOGLOBIN 13.2 g/dL (12.0-16.0)
[2025-01-25 09:17] LABS: BASOPHILS PERCENT AUTO 0.4 % (0.1-1.3); EOSINOPHILS PERCENT AUTO 0.0 % (0.0-5.4); IMMATURE GRAN ABSOLUTE AUTO 0.03 K/uL (0.00-0.23); IMMATURE GRAN PERCENT AUTO 0.6 % (0.0-0.7); LYMPHOCYTES ABSOLUTE AUTO 0.76 K/uL (0.8-3.3); LYMPHOCYTES PERCENT AUTO 14.4 % (11.4-47.7); MONOCYTES ABSOLUTE AUTO 0.40 K/uL (0.20-0.90); MONOCYTES PERCENT AUTO 7.6 % (3.3-12.6); NEUTROPHILS ABSOLUTE AUTO 4.06 K/uL (1.0-7.6); NEUTROPHILS PERCENT AUTO 77.0 % (40.0-78.1); PLATELET COUNT,PLT 184 K/uL (130-375); RED BLOOD CELL COUNT 4.49 M/uL (3.77-5.24); WHITE BLOOD CELL COUNT,WBC 5.3 K/uL (3.2-11.0)
[2025-01-25] MEDS: Metoprolol Tartrate 5 MG/5 ML SDV IVPUSH ONE ×2 (09:19→10:07)
[2025-01-25 09:21] LABS: BASOPHILS ABSOLUTE AUTO 0.02 K/uL (0.00-0.10); EOSINOPHILS ABSOLUTE AUTO 0.00 K/uL (0.00-0.40)
[2025-01-25] MEDS ORDERED: Naloxone 0.4 MG/ML SDV IVPUSH PRN ×3 (09:30→15:05)
[2025-01-25] MEDS ORDERED: fentaNYL 50 MCG/ML SDV IVPUSH PRN (09:30)
[2025-01-25 09:33] LABS: INR 1.2
[2025-01-25] MEDS: Ondansetron 4 MG/2 ML SDV IVPUSH ONE (09:42)
[2025-01-25 09:47] LABS: A/G RATIO 0.7 (1.2-2.2); ALANINE AMINOTRANSFERASE,ALT 15 U/L (12-78); BILIRUBIN TOTAL 1.0 mg/dL (0.2-1.0); BLOOD UREA NITROGEN,BUN 7 mg/dL (7-18); CARBON DIOXIDE,CO2 20 mmol/L (21-32); CHLORIDE,CL 95 mmol/L (100-108); GLUCOSE RANDOM 232 mg/dL (74-106); POTASSIUM,K 3.7 mmol/L (3.6-5.2); PRO B-TYPE NATRIUR PEPT,BNPPRO 3427 pg/mL (5-125); PROTEIN TOTAL,TP 7.6 g/dL (6.4-8.2); SODIUM,NA 130 mmol/L (140-148)
[2025-01-25 09:49] LABS: TROPONIN I HIGH SENSITIVITY 38.4 pg/mL (<=60.3); TSH ULTRASENSITIVE 0.946 uIU/mL (0.358-3.740)
[2025-01-25 10:01] LABS: ASPARTATE AMNIOTRANSFERASE,AST 23 U/L (15-37); CREATININE 0.6 mg/dL (0.6-1.0); EST CRCL DRUG DOSING (CG) 66.05 mL/min; ESTIMATED GFR 95 mL/min (>60)
[2025-01-25] MEDS: Sodium Chloride 0.9% 10 ML Syringe FLUSH PRN (11:45)
[2025-01-25] MEDS: Iopamidol 755 Mg/ML 100 ML Bottle IV SCH (11:45)
[2025-01-25 11:46] LABS: CORONAVIRUS COVID-19 NAA NEGATIVE (NEGATIVE); INFLUENZA A NAA NEGATIVE (NEGATIVE); INFLUENZA B NAA NEGATIVE (NEGATIVE); RESPIRATORY SYNCYTIAL VIR NAA NEGATIVE (NEGATIVE)
[2025-01-25] MEDS: Furosemide 40 MG/4 ML VIAL IVPUSH ONE (11:46)
[2025-01-25 12:12] LABS: APPEARANCE,URINE CLEAR (CLEAR); GLUCOSE,URINE 250 mg/dL (NEGATIVE); OCCULT BLOOD,URINE TRACE-INTACT (NEGATIVE)
[2025-01-25 12:18] LABS: AMPHETAMINES SCREEN, URINE NEGATIVE (NEGATIVE); METHADONE SCREEN, URINE NEGATIVE (NEGATIVE); METHAMPHETAMINES SCREEN, URINE NEGATIVE (NEGATIVE); OXYCODONE SCREEN,URINE PRESUMPTIVE POSITIVE (NEGATIVE); PROPOXYPHENE SCREEN,URINE NEGATIVE (NEGATIVE); SQUAMOUS EPITHELIAL CELLS,UR NOT SEEN /HPF; THC SCREEN,URINE 50 NG/ML NEGATIVE (NEGATIVE); UROTHELIAL CELLS,URINE NOT SEEN /HPF
[2025-01-25] MEDS ORDERED: OXYCODONE HCL 20 MG PO PRN (15:05)
[2025-01-25] MEDS ORDERED: Ondansetron 4 MG/2 ML SDV IV PRN (15:05)
[2025-01-25] MEDS ORDERED: 50% Dextrose in Water 50 ML Syringe IV PRN (15:05)
[2025-01-25] MEDS ORDERED: Albuterol 0.083% 2.5 MG/3 ML Neb Soln NEB PRN (15:05)
[2025-01-25] MEDS ORDERED: Non-Formulary Medication 1 Each (Tizanidine [Zanaflex] 4 MG Tablet) PO PRN (15:05)
[2025-01-25] MEDS ORDERED: Glucose Gel 15 GM in 37.5 GM Tube PO PRN (15:05)
[2025-01-25] MEDS ORDERED: Sodium Chloride 0.9% 10 ML Syringe FLUSH PRN (15:05)
[2025-01-25] MEDS: methylPREDNISolone Sodium Succinate 125 MG/2 ML SDV IVPUSH ONE (16:02)
[2025-01-25] MEDS: Insulin Lispro 100 Unit/ML 3 ML KwikPen SUBCUT SCH (16:52)
[2025-01-25] MEDS ORDERED: Non-Formulary Medication 1 Each (Duloxetine [Cymbalta] 60 MG Cap) PO SCH (21:00)
[2025-01-25] MEDS ORDERED: Metoprolol Tartrate 5 MG/5 ML SDV IVPUSH PRN (21:12)
[2025-01-26 06:04] LABS: PLATELET COUNT,PLT 181.0 K/uL (130-375); RED BLOOD CELL COUNT 4.12 M/uL (3.77-5.24); WHITE BLOOD CELL COUNT,WBC 2.3 K/uL (3.2-11.0)
[2025-01-26 06:21] LABS: A/G RATIO 0.6 (1.2-2.2); ALANINE AMINOTRANSFERASE,ALT 12 U/L (12-78); ASPARTATE AMNIOTRANSFERASE,AST 13 U/L (15-37); BILIRUBIN TOTAL 0.6 mg/dL (0.2-1.0); BLOOD UREA NITROGEN,BUN 12 mg/dL (7-18); CARBON DIOXIDE,CO2 25 mmol/L (21-32); CHLORIDE,CL 103 mmol/L (100-108); CREATININE 0.6 mg/dL (0.6-1.0); EST CRCL DRUG DOSING (CG) 66.05 mL/min; ESTIMATED GFR 95 mL/min (>60); GLUCOSE RANDOM 258 mg/dL (74-106); POTASSIUM,K 3.6 mmol/L (3.6-5.2); PROTEIN TOTAL,TP 6.2 g/dL (6.4-8.2); SODIUM,NA 136 mmol/L (140-148)
[2025-01-26] MEDS ORDERED: Non-Formulary Medication 1 Each (Bupropion Hcl [Bupropion Xl] 300 MG Tab.Er.24h) PO SCH (09:00)
[2025-01-26] MEDS ORDERED: Non-Formulary Medication 1 Each (Amlodipine Besylate [Norvasc] 10 MG Tablet) PO SCH (09:00)
[2025-01-26] MEDS: buPROPion 150 MG Tab.ER PO SCH (09:08)
[2025-01-26] MEDS: Insulin Glargine,Human Rec. Analog 100 Units/ML 3 ML Pen SUBCUT SCH (09:13)
[2025-01-26] MEDS: Magnesium Sulfate 2 GM/50 mL 2 GM in Premix Bag 1 BAG IV SCH (10:05)
[2025-01-26] MEDS: Benzocaine/Cetylpyridinium/Menthol Lozenge MUCMEM PRN (21:45)
[2025-01-27 05:21] LABS: PLATELET COUNT,PLT 182.0 K/uL (130-375); RED BLOOD CELL COUNT 3.86 M/uL (3.77-5.24); WHITE BLOOD CELL COUNT,WBC 3.6 K/uL (3.2-11.0)
[2025-01-27 05:23] LABS: BLOOD UREA NITROGEN,BUN 16.0 mg/dL (7-18); CARBON DIOXIDE,CO2 27.0 mmol/L (21-32); CHLORIDE,CL 102.0 mmol/L (100-108); CREATININE 0.6 mg/dL (0.6-1.0); EST CRCL DRUG DOSING (CG) 66.05 mL/min; ESTIMATED GFR 95.0 mL/min (>60); GLUCOSE RANDOM 153.0 mg/dL (74-106); POTASSIUM,K 3.8 mmol/L (3.6-5.2); SODIUM,NA 135.0 mmol/L (140-148)
[2025-01-29 14:23] VITALS: BP 152/64; PULSE 74
== END 2025-01-29 15:40 | disposition home health service (06) | DRG 871 ==
LOC: JP.ED 08:58 → JP.ICU 13:15
PROVIDERS: ADMIT Hospitalist; ATTEND Internal Medicine
DX: J18.9 Pneumonia, unspecified organism (principal); I48.91 Unspecified atrial fibrillation; R06.4 Hyperventilation; A40.8 Other streptococcal sepsis; J15.4 Pneumonia due to other streptococci; J96.01 Acute respiratory failure with hypoxia; J44.0 Chronic obstructive pulmonary disease with (acute) lower respiratory infection; Z79.01 Long term (current) use of anticoagulants; E87.20 Acidosis, unspecified; I48.20 Chronic atrial fibrillation, unspecified; J44.1 Chronic obstructive pulmonary disease with (acute) exacerbation; M86.60 Other chronic osteomyelitis, unspecified site; M19.90 Unspecified osteoarthritis, unspecified site; F17.210 Nicotine dependence, cigarettes, uncomplicated; H91.90 Unspecified hearing loss, unspecified ear; H26.9 Unspecified cataract; H54.7 Unspecified visual loss; E78.00 Pure hypercholesterolemia, unspecified; I10 Essential (primary) hypertension; G89.29 Other chronic pain; E11.9 Type 2 diabetes mellitus without complications; M16.11 Unilateral primary osteoarthritis, right hip; F41.9 Anxiety disorder, unspecified; Z88.2 Allergy status to sulfonamides; Z88.5 Allergy status to narcotic agent; Z88.8 Allergy status to other drugs, medicaments and biological substances; Z79.84 Long term (current) use of oral hypoglycemic drugs; Z79.899 Other long term (current) drug therapy; Z79.891 Long term (current) use of opiate analgesic; Z79.1 Long term (current) use of non-steroidal anti-inflammatories (NSAID); Z79.4 Long term (current) use of insulin; Z79.82 Long term (current) use of aspirin; Z90.49 Acquired absence of other specified parts of digestive tract; Z98.891 History of uterine scar from previous surgery; Z90.710 Acquired absence of both cervix and uterus; Z98.1 Arthrodesis status; Z87.81 Personal history of (healed) traumatic fracture
CPT/HCPCS: 36415; 71045; 71045-26; 71275; 72170; 72170-26; 80048; 80053; 80162; 80305-QW; 80307; 81001; 82803; 82947; 83605; 83735; 83880; 84443; 84484; 85025; 85027; 85379; 85610; 86140; 87040; 87070; 87077; 87205; 87637; 93005; 93010; 94640; 94667; 94668; 96361; 96374; 96375; 96376; 97161-GP; 99223; 99232; 99238; 99285; 99285-25; A9270-GY; J0696; J1171; J1271; J1815-GY; J1938; J2405; J2919; J3475; J3490; J7030; J7512; Q9967

== ENCOUNTER 2025-02-02 23:32 | Inpatient (IN) | payer MEDICAID, MEDICARE ==
[2025-02-03 00:22] LABS: BASOPHILS ABSOLUTE AUTO 0.08 K/uL (0.00-0.10); BASOPHILS PERCENT AUTO 0.7 % (0.1-1.3); EOSINOPHILS ABSOLUTE AUTO 0.08 K/uL (0.00-0.40); EOSINOPHILS PERCENT AUTO 0.7 % (0.0-5.4); IMMATURE GRAN ABSOLUTE AUTO 0.17 K/uL (0.00-0.23); IMMATURE GRAN PERCENT AUTO 1.4 % (0.0-0.7); LYMPHOCYTES ABSOLUTE AUTO 3.41 K/uL (0.8-3.3); LYMPHOCYTES PERCENT AUTO 29.1 % (11.4-47.7); MONOCYTES ABSOLUTE AUTO 1.10 K/uL (0.20-0.90); MONOCYTES PERCENT AUTO 9.4 % (3.3-12.6); NEUTROPHILS ABSOLUTE AUTO 6.89 K/uL (1.0-7.6); NEUTROPHILS PERCENT AUTO 58.7 % (40.0-78.1); PLATELET COUNT,PLT 630 K/uL (130-375); RED BLOOD CELL COUNT 6.13 M/uL (3.77-5.24); WHITE BLOOD CELL COUNT,WBC 11.7 K/uL (3.2-11.0)
[2025-02-03] MEDS: methylPREDNISolone Sodium Succinate 125 MG/2 ML SDV IVPUSH ONE (00:26)
[2025-02-03 00:43] LABS: ALANINE AMINOTRANSFERASE,ALT 16 U/L (12-78); ASPARTATE AMNIOTRANSFERASE,AST 19 U/L (15-37); BILIRUBIN TOTAL 0.8 mg/dL (0.2-1.0); BLOOD UREA NITROGEN,BUN 38 mg/dL (7-18); CARBON DIOXIDE,CO2 24 mmol/L (21-32); CHLORIDE,CL 95 mmol/L (100-108); CREATININE 1.2 mg/dL (0.6-1.0); EST CRCL DRUG DOSING (CG) 32.74 mL/min; ESTIMATED GFR 48 mL/min (>60); GLUCOSE RANDOM 149 mg/dL (74-106); POTASSIUM,K 4.3 mmol/L (3.6-5.2); PROTEIN TOTAL,TP 7.9 g/dL (6.4-8.2); SODIUM,NA 135 mmol/L (140-148)
[2025-02-03 00:44] LABS: A/G RATIO 0.7 (1.2-2.2)
[2025-02-03 00:45] LABS: TROPONIN I HIGH SENSITIVITY 72.7 pg/mL (<=60.3)
[2025-02-03] MEDS: diphenhydrAMINE 50 MG/ML SDV IVPUSH ONE (02:18)
[2025-02-03] MEDS: Sodium Chloride 0.9% 10 ML Syringe FLUSH PRN (03:27)
[2025-02-03] MEDS: Iopamidol 612 MG/ML 100 ML Bottle IV SCH (03:27)
[2025-02-03 04:29] LABS: APPEARANCE,URINE CLEAR (CLEAR); GLUCOSE,URINE NEGATIVE (NEGATIVE); OCCULT BLOOD,URINE NEGATIVE (NEGATIVE)
[2025-02-03 04:41] LABS: SQUAMOUS EPITHELIAL CELLS,UR RARE /HPF; UROTHELIAL CELLS,URINE NOT SEEN /HPF
[2025-02-03] MEDS ORDERED: Albuterol 0.083% 2.5 MG/3 ML Neb Soln NEB PRN (04:52)
[2025-02-03] MEDS ORDERED: Insulin Lispro 100 Unit/ML 3 ML KwikPen SUBCUT SCH ×2 (05:00→20:00)
[2025-02-03] MEDS ORDERED: Fluticasone NASAL Spray 16 GM Bottle NAS PRN (05:10)
[2025-02-03] MEDS ORDERED: 50% Dextrose in Water 50 ML Syringe IVPUSH PRN ×2 (05:10→17:51)
[2025-02-03] MEDS ORDERED: methylPREDNISolone Sodium Succinate 40 MG/1 ML SDV IVPUSH SCH (06:00)
[2025-02-03] MEDS: methylPREDNISolone Sodium Succinate 40 MG/1 ML SDV IVPUSH SCH (07:50)
[2025-02-03] MEDS: Piperacillin/Tazobactam/Dext 4.5 GM in Premix Bag 1 BAG IV ONE (08:40)
[2025-02-03] MEDS: buPROPion 150 MG Tab.ER PO SCH (08:48)
[2025-02-03] MEDS: Multivitamins with Iron/Calcium/Folic Acid/Minerals Tab PO SCH (08:48)
[2025-02-03] MEDS: Levofloxacin/Dextrose 5%-Water 750 MG in Premix Bag 1 BAG IV SCH (10:17)
[2025-02-03] MEDS ORDERED: Piperacillin/Tazobactam/Dext 4.5 GM in Premix Bag 1 BAG IV SCH (12:30)
[2025-02-03] MEDS: Sodium Chloride 0.9% 10 ML Syringe FLUSH ONE (12:51)
[2025-02-03] MEDS: Iopamidol 755 Mg/ML 100 ML Bottle IV ONE (12:58)
[2025-02-03] MEDS ORDERED: Insulin Glargine,Human Rec. Analog 100 Units/ML 3 ML Pen SUBCUT SCH ×2 (21:00→21:10)
[2025-02-03] MEDS: Insulin Glargine,Human Rec. Analog 100 Units/ML 3 ML Pen SUBCUT SCH (21:16)
[2025-02-03] MEDS: Insulin Lispro 100 Unit/ML 3 ML KwikPen SUBCUT SCH (21:16)
[2025-02-04 05:57] LABS: BASOPHILS PERCENT AUTO 0.1 % (0.1-1.3); EOSINOPHILS PERCENT AUTO 0.0 % (0.0-5.4); IMMATURE GRAN ABSOLUTE AUTO 0.15 K/uL (0.00-0.23); IMMATURE GRAN PERCENT AUTO 1.0 % (0.0-0.7); LYMPHOCYTES ABSOLUTE AUTO 1.16 K/uL (0.8-3.3); LYMPHOCYTES PERCENT AUTO 8.1 % (11.4-47.7); MONOCYTES ABSOLUTE AUTO 1.48 K/uL (0.20-0.90); MONOCYTES PERCENT AUTO 10.3 % (3.3-12.6); NEUTROPHILS ABSOLUTE AUTO 11.57 K/uL (1.0-7.6); NEUTROPHILS PERCENT AUTO 80.5 % (40.0-78.1); PLATELET COUNT,PLT 449 K/uL (130-375); RED BLOOD CELL COUNT 4.31 M/uL (3.77-5.24); WHITE BLOOD CELL COUNT,WBC 14.4 K/uL (3.2-11.0)
[2025-02-04 06:05] LABS: BASOPHILS ABSOLUTE AUTO 0.02 K/uL (0.00-0.10); EOSINOPHILS ABSOLUTE AUTO 0.00 K/uL (0.00-0.40)
[2025-02-04 06:10] LABS: BLOOD UREA NITROGEN,BUN 30.0 mg/dL (7-18); CARBON DIOXIDE,CO2 23.0 mmol/L (21-32); CHLORIDE,CL 99.0 mmol/L (100-108); CREATININE 1.1 mg/dL (0.6-1.0); EST CRCL DRUG DOSING (CG) 36.02 mL/min; ESTIMATED GFR 53.0 mL/min (>60); GLUCOSE RANDOM 323.0 mg/dL (74-106); POTASSIUM,K 4.6 mmol/L (3.6-5.2); SODIUM,NA 132.0 mmol/L (140-148)
[2025-02-05 06:23] LABS: BASOPHILS PERCENT AUTO 0.1 % (0.1-1.3); EOSINOPHILS PERCENT AUTO 0.0 % (0.0-5.4); IMMATURE GRAN ABSOLUTE AUTO 0.07 K/uL (0.00-0.23); IMMATURE GRAN PERCENT AUTO 0.7 % (0.0-0.7); LYMPHOCYTES ABSOLUTE AUTO 1.54 K/uL (0.8-3.3); LYMPHOCYTES PERCENT AUTO 14.8 % (11.4-47.7); MONOCYTES ABSOLUTE AUTO 1.14 K/uL (0.20-0.90); MONOCYTES PERCENT AUTO 10.9 % (3.3-12.6); NEUTROPHILS ABSOLUTE AUTO 7.68 K/uL (1.0-7.6); NEUTROPHILS PERCENT AUTO 73.5 % (40.0-78.1); PLATELET COUNT,PLT 392 K/uL (130-375); RED BLOOD CELL COUNT 4.07 M/uL (3.77-5.24); WHITE BLOOD CELL COUNT,WBC 10.4 K/uL (3.2-11.0)
[2025-02-05 06:32] LABS: BASOPHILS ABSOLUTE AUTO 0.01 K/uL (0.00-0.10); EOSINOPHILS ABSOLUTE AUTO 0.00 K/uL (0.00-0.40)
[2025-02-05 06:42] LABS: BLOOD UREA NITROGEN,BUN 20.0 mg/dL (7-18); CARBON DIOXIDE,CO2 27.0 mmol/L (21-32); CHLORIDE,CL 98.0 mmol/L (100-108); CREATININE 0.9 mg/dL (0.6-1.0); EST CRCL DRUG DOSING (CG) 44.03 mL/min; ESTIMATED GFR 68.0 mL/min (>60); GLUCOSE RANDOM 202.0 mg/dL (74-106); POTASSIUM,K 4.0 mmol/L (3.6-5.2); SODIUM,NA 131.0 mmol/L (140-148)
[2025-02-05] MEDS: Levofloxacin/Dextrose 5%-Water 750 MG in Premix Bag 1 BAG IV SCH (09:28)
[2025-02-05] MEDS: Insulin Lispro 100 Unit/ML 3 ML KwikPen SUBCUT ONE (12:16)
[2025-02-05] MEDS: Hydrocortisone Sodium Succinate 100 MG/2 ML SDV IVPUSH ONE (13:20)
[2025-02-06 13:14] VITALS: BP 106/42; PULSE 74
== END 2025-02-06 13:46 | DRG 193 ==
LOC: JP.ED 23:32 → JP.ICU 02-03 04:53
PROVIDERS: ADMIT Internal Medicine; ATTEND Hospitalist
DX: J18.9 Pneumonia, unspecified organism (principal); R65.20 Severe sepsis without septic shock; J96.01 Acute respiratory failure with hypoxia; N17.9 Acute kidney failure, unspecified; J44.1 Chronic obstructive pulmonary disease with (acute) exacerbation; J44.0 Chronic obstructive pulmonary disease with (acute) lower respiratory infection; M46.28 Osteomyelitis of vertebra, sacral and sacrococcygeal region; Z88.5 Allergy status to narcotic agent; H26.9 Unspecified cataract; H91.90 Unspecified hearing loss, unspecified ear; H54.7 Unspecified visual loss; I48.91 Unspecified atrial fibrillation; E78.00 Pure hypercholesterolemia, unspecified; I10 Essential (primary) hypertension; Z90.710 Acquired absence of both cervix and uterus; E86.0 Dehydration; M19.90 Unspecified osteoarthritis, unspecified site; J20.9 Acute bronchitis, unspecified; M54.9 Dorsalgia, unspecified; G89.29 Other chronic pain; F32.A Depression, unspecified; E11.9 Type 2 diabetes mellitus without complications; Z79.01 Long term (current) use of anticoagulants; Z90.49 Acquired absence of other specified parts of digestive tract; Z88.2 Allergy status to sulfonamides; Z88.8 Allergy status to other drugs, medicaments and biological substances; Z79.899 Other long term (current) drug therapy; Z86.718 Personal history of other venous thrombosis and embolism; Z79.4 Long term (current) use of insulin; Z95.0 Presence of cardiac pacemaker; Z79.82 Long term (current) use of aspirin; Z98.890 Other specified postprocedural states; Z98.891 History of uterine scar from previous surgery; Z87.891 Personal history of nicotine dependence
CPT/HCPCS: 36410; 36415; 51702; 71045 ×2; 71260; 74177; 80053; 81001; 83605; 83880; 84145; 84484 ×2; 85025; 87040 ×2; 93005; 94640; 96365; 96367; 96375; 99285; A9270; J1200; J1790; J2543; J3374; J7030; J7050; Q9967; 80048; 82947; 83735; 87428-QW; 93010; 93306; 97162-GP; 99223; 99232; 99233; 99238; J1815-GY; J1956; J2470; J2919; J3373; J7512